=== PATIENT | female | born 1955 | race African-American/Black ===

== ENCOUNTER 2017-01-05 19:54 | Observation (INO) ==
[2017-01-05 21:30] LABS: Troponin I Only 0.197 NG/ML (0.00-0.045)
[2017-01-05] MEDS ORDERED: MAGNESIUM SULF RIDER 4 GM in PREMIX 1 EACH IV PRN (21:42)
[2017-01-05] MEDS ORDERED: ONDANSETRON 4 MG/2 ML VIAL IV PRN (21:42)
[2017-01-05] MEDS ORDERED: MAGNESIUM SULF RIDER 2 GM in PREMIX 1 EACH IV PRN (21:42)
[2017-01-05] MEDS ORDERED: ZALEPLON 5 MG CAPSULE PO PRN (21:42)
[2017-01-05] MEDS: MORPHINE 2 MG/1 ML SYRINGE IV PRN (23:15)
[2017-01-06] MEDS: SODIUM CHLORIDE 0.9% 1,000 ML IV SCH ×4 (00:10→14:55)
[2017-01-06 01:04] LABS: Troponin I Only 0.165 NG/ML (0.00-0.045)
[2017-01-06] MEDS: MORPHINE 2 MG/1 ML SYRINGE IV PRN ×3 (04:08→23:55)
[2017-01-06 05:39] LABS: Basophils % 0.3 % (0.0-0.8); Eosinophils # 0.2 10*3/uL (0.0-0.87); Eosinophils % 1.7 % (0.00-10.9); Hematocrit 37.8 VOL% (35.7-47.0); Hemoglobin 12.8 GM/DL (12.0-16.0); Immature Granulocytes % 0.2 %; Immature Granulocytes Absolute 0.02 #; Lymphocytes # 4.6 10*3/uL (1.4-4.0); Lymphocytes % 46.7 % (21.3-54.2); Mean Corpuscular HGB Conc 33.9 GM/DL (32-36); Mean Corpuscular Hemoglobin 31 PG (27-34); Mean Corpuscular Volume 91.7 FL (87-102); Mean Platelet Volume 9.4 FL (9.6-12.0); Monocytes # 0.7 10*3/uL (0.11-0.8); Monocytes % 7.6 % (1.7-12.7); Neutrophils # 4.3 10*3/uL (1.4-7.4); Neutrophils % 43.5 % (38.7-73.9); Platelet Count 230 T/CUMM (130-400); Red Blood Count 4.12 MC/CUMM (3.8-5.5); Red Cell Distribution Width 13.2 % (9.3-17.3); White Blood Count 9.8 T/CUMM (4-12)
[2017-01-06 06:16] LABS: Alanine Aminotransferase 25 U/L (13-56); Albumin 3.4 G/DL (3.4-5.0); Alkaline Phosphatase 111 U/L (45-117); Aspartate Amino Transferase 17 U/L (0-37); Blood Urea Nitrogen 10 MG/DL (7-18); Calcium 8.8 MG/DL (8.5-10.1); Cholesterol 109 MG/DL (50-200); Glucose 88 MG/DL (74-106); HDL Cholesterol 62 MG/DL (40-60); Magnesium 2.2 MG/DL (1.8-2.4); Osmolality,Calculated 274.5 MOS/KG (273-304); Potassium 4.4 MMOL/L (3.5-5.1); Risk Ratio 1.76; Sodium 139 MMOL/L (136-145); Triglycerides 86 MG/DL (2-150); VLDL CHOLESTEROL 17.2 MG/DL
[2017-01-06] MEDS ORDERED: MORPHINE 2 MG/1 ML SYRINGE IV ONE (08:25)
[2017-01-06] MEDS ORDERED: KETOROLAC 15 MG/1 ML VIAL IV ONE (08:26)
[2017-01-06] MEDS: traMADol 50 MG TABLET PO SCH ×2 (08:47→20:37)
[2017-01-06] MEDS ORDERED: ENOXAPARIN 40 MG/0.4 ML SYRINGE SUBCUT SCH (09:00)
[2017-01-06] MEDS: ASPIRIN EC 81 MG TABLET PO SCH (09:31)
[2017-01-06] MEDS: CARVEDILOL 6.25 MG TABLET PO SCH ×2 (09:31→20:37)
[2017-01-06] MEDS: PANTOPRAZOLE 40 MG TABLET PO SCH ×2 (09:31→20:37)
[2017-01-06 10:12] LABS: Troponin I Only 0.104 NG/ML (0.00-0.045)
[2017-01-06] MEDS: METHADONE 10 MG TABLET PO SCH ×2 (11:38→17:50)
[2017-01-06 19:52] LABS: Troponin I Only 0.073 NG/ML (0.00-0.045)
[2017-01-06] MEDS: POLYETHYLENE GLYCOL POWDER 17 GM PACK PO SCH (20:36)
[2017-01-06] MEDS: INSULIN REGULAR 100 UNIT/ML SUBCUT SCH (21:10)
[2017-01-06] MEDS ORDERED: GLUCAGON 1 MG VIAL IM PRN (21:36)
[2017-01-06] MEDS ORDERED: DEXTROSE 50% 25 GM/50 ML VIAL IV PRN (21:36)
[2017-01-07] MEDS: METHADONE 10 MG TABLET PO SCH ×4 (03:26→12:41)
[2017-01-07 05:15] LABS: Basophils % 0.3 % (0.0-0.8); Eosinophils # 0.2 10*3/uL (0.0-0.87); Hemoglobin 13.2 GM/DL (12.0-16.0); Immature Granulocytes % 0.1 %; Immature Granulocytes Absolute 0.01 #; Lymphocytes # 4.1 10*3/uL (1.4-4.0); Lymphocytes % 56.1 % (21.3-54.2); Mean Corpuscular HGB Conc 33.8 GM/DL (32-36); Mean Corpuscular Hemoglobin 31 PG (27-34); Mean Corpuscular Volume 91.3 FL (87-102); Mean Platelet Volume 9.7 FL (9.6-12.0); Monocytes # 0.5 10*3/uL (0.11-0.8); Monocytes % 6.7 % (1.7-12.7); Neutrophils # 2.5 10*3/uL (1.4-7.4); Neutrophils % 33.8 % (38.7-73.9); Platelet Count 217 T/CUMM (130-400); Red Blood Count 4.27 MC/CUMM (3.8-5.5); White Blood Count 7.3 T/CUMM (4-12)
[2017-01-07 05:57] LABS: Calcium 8.9 MG/DL (8.5-10.1); Magnesium 2.3 MG/DL (1.8-2.4); Osmolality,Calculated 283.5 MOS/KG (273-304); Potassium 4.5 MMOL/L (3.5-5.1)
[2017-01-07] MEDS: SODIUM CHLORIDE 0.9% 1,000 ML IV SCH (06:48)
[2017-01-07] MEDS ORDERED: ETOMIDATE 20 MG/10 ML VIAL IV ONE (07:15)
[2017-01-07] MEDS ORDERED: PROPOFOL 200 MG/20 ML VIAL IV ONE (07:15)
[2017-01-07] MEDS ORDERED: LIDOCAINE 100 MG/5 ML SYRINGE ONE (07:15)
[2017-01-07 07:37] LABS: Hypochromasia 1+; Lymphocytes 60 % (20-55); Segmented Neutrophils 35 % (50-85); Total Cells Counted 100
[2017-01-07 07:38] LABS: Microcytosis 1+; Platelet Estimate Normal
[2017-01-07] MEDS: INSULIN REGULAR 100 UNIT/ML SUBCUT SCH ×2 (07:55→12:51)
[2017-01-07] MEDS: CARVEDILOL 6.25 MG TABLET PO SCH (08:45)
[2017-01-07] MEDS: PANTOPRAZOLE 40 MG TABLET PO SCH (08:45)
[2017-01-07] MEDS: POLYETHYLENE GLYCOL POWDER 17 GM PACK PO SCH (08:46)
[2017-01-07] MEDS: traMADol 50 MG TABLET PO SCH (08:46)
[2017-01-07] MEDS: ASPIRIN EC 81 MG TABLET PO SCH (08:46)
[2017-01-07 11:50] VITALS: BP 142/81
[2017-01-07] MEDS ORDERED: METOCLOPRAMIDE 10 MG/2 ML VIAL IV SCH (12:00)
== END 2017-01-07 17:24 | disposition home or self-care (01) ==
LOC: EDUNIT# → EDBD → N.EDINP 19:54 → N.ED 19:54 → N.TELES 22:08
PROVIDERS: ADMIT Internal Medicine Cardiovascular Disease; ATTEND Internal Medicine Cardiovascular Disease

== ENCOUNTER 2017-01-08 20:28 | Inpatient (IN) ==
[2017-01-08] MEDS ORDERED: DEXTROSE 50% 25 GM/50 ML SYRINGE IV ONE (20:36)
[2017-01-08] MEDS ORDERED: DICYCLOMINE 20 MG/2 ML AMP IM ONE ×2 (21:11→21:13)
[2017-01-08 21:36] LABS: Basophils % 0.3 % (0.0-0.8); Eosinophils # 0.1 10*3/uL (0.0-0.87); Eosinophils % 1.8 % (0.00-10.9); Hematocrit 37.9 VOL% (35.7-47.0); Hemoglobin 13.1 GM/DL (12.0-16.0); Immature Granulocytes % 0.3 %; Immature Granulocytes Absolute 0.02 #; Lymphocytes # 2.9 10*3/uL (1.4-4.0); Lymphocytes % 38.3 % (21.3-54.2); Mean Corpuscular HGB Conc 34.6 GM/DL (32-36); Mean Corpuscular Hemoglobin 31 PG (27-34); Mean Corpuscular Volume 90.9 FL (87-102); Mean Platelet Volume 9.4 FL (9.6-12.0); Monocytes # 0.6 10*3/uL (0.11-0.8); Monocytes % 8.1 % (1.7-12.7); Neutrophils # 3.9 10*3/uL (1.4-7.4); Neutrophils % 51.2 % (38.7-73.9); Platelet Count 206 T/CUMM (130-400); Red Blood Count 4.17 MC/CUMM (3.8-5.5); Red Cell Distribution Width 12.7 % (9.3-17.3); White Blood Count 7.7 T/CUMM (4-12)
[2017-01-08 21:46] LABS: Osmolality,Calculated 278.7 MOS/KG (273-304)
[2017-01-08] MEDS ORDERED: ONDANSETRON 4 MG/2 ML VIAL IV PRN (23:53)
[2017-01-08] MEDS ORDERED: DEXTROSE 50% 25 GM/50 ML VIAL IV PRN (23:53)
[2017-01-08] MEDS ORDERED: GLUCAGON 1 MG VIAL IM PRN (23:53)
[2017-01-09] MEDS: INSULIN LISPRO 100 UNIT/ML SUBCUT SCH ×4 (00:23→17:11)
[2017-01-09] MEDS: SODIUM CHLORIDE 0.9% 1,000 ML IV SCH ×4 (00:30→23:14)
[2017-01-09] MEDS: ENOXAPARIN 40 MG/0.4 ML SYRINGE SUBCUT SCH ×2 (00:31→23:14)
[2017-01-09] MEDS: MORPHINE 2 MG/1 ML SYRINGE IV PRN ×2 (00:33→08:50)
[2017-01-09] MEDS: PANTOPRAZOLE 40 MG VIAL IV SCH (08:46)
[2017-01-09] MEDS ORDERED: INSULIN ASPART PROTAMINE/ASPART 70/30 100 UNIT/ML SUBCUT SCH (16:30)
[2017-01-09] MEDS: MONTELUKAST 10 MG TABLET PO SCH (16:41)
[2017-01-09] MEDS: METHADONE 10 MG TABLET PO SCH (16:42)
[2017-01-09] MEDS: ATORVASTATIN 20 MG TABLET PO SCH (16:42)
[2017-01-09] MEDS: METOCLOPRAMIDE 10 MG/2 ML VIAL IV SCH (17:17)
[2017-01-09] MEDS: METHYLNALTREXONE 12 MG/0.6 ML VIAL SUBCUT SCH (17:46)
[2017-01-09] MEDS: ALBUTEROL/IPRATROPIUM 3 ML NEB RESP TX SCH (19:13)
[2017-01-09] MEDS: PREGABALIN 50 MG CAPSULE PO SCH (21:21)
[2017-01-09] MEDS: PANTOPRAZOLE 40 MG TABLET PO SCH (21:22)
[2017-01-09] MEDS: CARVEDILOL 6.25 MG TABLET PO SCH (21:22)
[2017-01-09] MEDS: LACTULOSE 20 GM/30 ML UDCUP PO SCH (23:14)
[2017-01-10] MEDS: INSULIN LISPRO 100 UNIT/ML SUBCUT SCH ×4 (00:24→17:17)
[2017-01-10] MEDS: METOCLOPRAMIDE 10 MG/2 ML VIAL IV SCH ×3 (00:25→13:08)
[2017-01-10] MEDS: LACTULOSE 20 GM/30 ML UDCUP PO SCH ×4 (04:37→13:08)
[2017-01-10] MEDS: SODIUM CHLORIDE 0.9% 1,000 ML IV SCH ×2 (06:26→15:25)
[2017-01-10] MEDS ORDERED: INSULIN ASPART PROTAMINE/ASPART 70/30 100 UNIT/ML SUBCUT SCH ×3 (07:30→15:30)
[2017-01-10] MEDS ORDERED: LINACLOTIDE 145 MCG CAPSULE PO SCH (07:30)
[2017-01-10] MEDS: ALBUTEROL/IPRATROPIUM 3 ML NEB RESP TX SCH ×4 (08:09→20:29)
[2017-01-10] MEDS: CHOLECALCIFEROL 1,000 UNIT TABLET PO SCH (10:21)
[2017-01-10] MEDS: METHADONE 10 MG TABLET PO SCH (10:22)
[2017-01-10] MEDS: MONTELUKAST 10 MG TABLET PO SCH (10:22)
[2017-01-10] MEDS: PREGABALIN 50 MG CAPSULE PO SCH ×3 (10:22→20:41)
[2017-01-10] MEDS: ATORVASTATIN 20 MG TABLET PO SCH (10:22)
[2017-01-10] MEDS: PANTOPRAZOLE 40 MG TABLET PO SCH ×2 (10:22→20:41)
[2017-01-10] MEDS: CARVEDILOL 6.25 MG TABLET PO SCH ×2 (10:22→20:41)
[2017-01-10] MEDS: METHYLNALTREXONE 12 MG/0.6 ML VIAL SUBCUT SCH (10:23)
[2017-01-10] MEDS: LIDOCAINE 5% PATCH TRANSDERM SCH (10:35)
[2017-01-10] MEDS: PANTOPRAZOLE 40 MG VIAL IV SCH (11:04)
[2017-01-10] MEDS: METOCLOPRAMIDE 10 MG/10 ML UDCUP PO SCH ×2 (17:17→20:42)
[2017-01-10] MEDS: POLYETHYLENE GLYCOL POWDER 17 GM PACK PO SCH (20:42)
[2017-01-11] MEDS: INSULIN LISPRO 100 UNIT/ML SUBCUT SCH ×2 (00:01→06:00)
[2017-01-11] MEDS: ENOXAPARIN 40 MG/0.4 ML SYRINGE SUBCUT SCH (00:02)
[2017-01-11] MEDS: ALBUTEROL/IPRATROPIUM 3 ML NEB RESP TX SCH (07:20)
[2017-01-11] MEDS: ATORVASTATIN 20 MG TABLET PO SCH (09:39)
[2017-01-11] MEDS: METOCLOPRAMIDE 10 MG/10 ML UDCUP PO SCH ×2 (09:39→12:54)
[2017-01-11] MEDS: CARVEDILOL 6.25 MG TABLET PO SCH (09:39)
[2017-01-11] MEDS: LIDOCAINE 5% PATCH TRANSDERM SCH (09:39)
[2017-01-11] MEDS: CHOLECALCIFEROL 1,000 UNIT TABLET PO SCH (09:39)
[2017-01-11] MEDS: POLYETHYLENE GLYCOL POWDER 17 GM PACK PO SCH (09:40)
[2017-01-11] MEDS: PANTOPRAZOLE 40 MG TABLET PO SCH (09:40)
[2017-01-11] MEDS: METHADONE 10 MG TABLET PO SCH (09:40)
[2017-01-11] MEDS: MONTELUKAST 10 MG TABLET PO SCH (09:40)
[2017-01-11] MEDS: PREGABALIN 50 MG CAPSULE PO SCH (09:40)
[2017-01-11] MEDS: METHYLNALTREXONE 12 MG/0.6 ML VIAL SUBCUT SCH (09:46)
[2017-01-11 12:41] VITALS: BP 159/80
== END 2017-01-11 12:17 | disposition home or self-care (01) | DRG 390 ==
LOC: EDBD → EDUNIT# → N.ED 20:28 → N.EDINP 22:58 → SUATTDRO 22:58 → N.3E 23:47
PROVIDERS: ADMIT Internal Medicine; ATTEND Internal Medicine

== ENCOUNTER 2020-03-19 15:13 | Inpatient (IN) ==
[2020-03-19] MEDS ORDERED: GLUCAGON 1 MG VIAL IM PRN (15:59)
[2020-03-19] MEDS ORDERED: DEXTROSE 50% 25 GM/50 ML VIAL IV PRN (15:59)
[2020-03-19] MEDS ORDERED: oxyCODONE/ACETAMINOPHEN 5-325 MG TABLET PO PRN (16:28)
[2020-03-19] MEDS: oxyCODONE/ACETAMINOPHEN 5-325 MG TABLET PO PRN ×2 (16:44→20:39)
[2020-03-19] MEDS ORDERED: LINACLOTIDE 145 MCG CAPSULE PO PRN (16:49)
[2020-03-19 16:57] LABS: Basophils % 0.5 % (0.0-0.8); Eosinophils # 0.2 10*3/uL (0.0-0.87); Eosinophils % 1.9 % (0.00-10.9); Hematocrit 41.4 VOL% (35.7-47.0); Hemoglobin 13.8 GM/DL (12.0-16.0); Immature Granulocytes % 0.2 %; Immature Granulocytes Absolute 0.02 #; Lymphocytes # 3.9 10*3/uL (1.4-4.0); Lymphocytes % 45.7 % (21.3-54.2); Mean Corpuscular HGB Conc 33.3 GM/DL (32-36); Mean Corpuscular Volume 87.3 FL (87-102); Mean Platelet Volume 9.7 FL (9.6-12.0); Monocytes % 7.8 % (1.7-12.7); Neutrophils % 43.9 % (38.7-73.9); Platelet Count 316 T/CUMM (130-400); Red Blood Count 4.74 MC/CUMM (3.8-5.5); White Blood Count 8.4 T/CUMM (4-12)
[2020-03-19] MEDS ORDERED: INFLUENZA VIRUS VACCINE 0.5 ML SYRINGE IM ONE (17:03)
[2020-03-19 17:14] LABS: PT Patient Result 10.8 SECS (9.8-11.9)
[2020-03-19 17:21] LABS: Alanine Aminotransferase 12 U/L (13-56); Albumin 3.8 G/DL (3.4-5.0); Alkaline Phosphatase 156 U/L (45-117); Aspartate Amino Transferase 14 U/L (0-37); Bilirubin,Total < 0.39 MG/DL (0.2-1.0); Blood Urea Nitrogen 7 MG/DL (7-18); Calcium 9.2 MG/DL (8.5-10.1); Carbon Dioxide 27 MMOL/L (21-32); Estimated Glom Filtration Rate 112 ML/MIN; Glucose 126 MG/DL (74-106); Osmolality,Calculated 278.4 MOS/KG (273-304); Potassium 4.3 MMOL/L (3.5-5.1); Sodium 140 MMOL/L (136-145); Total Protein 7.9 G/DL (6.4-8.3); Uric Acid 4.4 MG/DL (2.6-6.0)
[2020-03-19] MEDS ORDERED: INDOMETHACIN 50 MG CAPSULE PO SCH (18:00)
[2020-03-19 18:01] LABS: Sedimentation Rate-Westergren 26 MM/HR (0-30)
[2020-03-19] MEDS: GABAPENTIN 400 MG CAPSULE PO SCH (20:39)
[2020-03-19] MEDS: VANCOMYCIN INJ 1,000 MG in SODIUM CHLORIDE 0.9% 250 ML IV SCH (20:39)
[2020-03-19] MEDS: PANTOPRAZOLE 40 MG TABLET PO SCH (20:39)
[2020-03-19] MEDS: PREGABALIN 100 MG CAPSULE PO SCH (20:39)
[2020-03-20] MEDS: oxyCODONE/ACETAMINOPHEN 5-325 MG TABLET PO PRN ×5 (01:12→21:59)
[2020-03-20] MEDS: VANCOMYCIN INJ 1,000 MG in SODIUM CHLORIDE 0.9% 250 ML IV SCH ×2 (07:50→21:48)
[2020-03-20] MEDS: PANTOPRAZOLE 40 MG TABLET PO SCH ×2 (09:54→21:48)
[2020-03-20] MEDS: lisinopriL 10 MG TABLET PO SCH (09:54)
[2020-03-20] MEDS: PREGABALIN 100 MG CAPSULE PO SCH ×3 (09:54→21:48)
[2020-03-20] MEDS: ESTRADIOL 1 MG TABLET PO SCH (09:54)
[2020-03-20] MEDS: ASPIRIN EC 81 MG TABLET PO SCH (09:55)
[2020-03-20] MEDS ORDERED: DEXTROSE 50% 25 GM/50 ML VIAL IV PRN (10:35)
[2020-03-20] MEDS ORDERED: GLUCAGON 1 MG VIAL IM PRN (10:35)
[2020-03-20] MEDS: NICOTINE 21 MG/24 HR PATCH TRANSDERM SCH (11:55)
[2020-03-20] MEDS: TENOFOVIR DISOPROXIL PO SCH (11:56)
[2020-03-20] MEDS: COBICISTAT PO SCH (11:56)
[2020-03-20] MEDS: EMPAGLIFLOZIN PO SCH (11:56)
[2020-03-20] MEDS: EMTRICITABINE PO SCH (11:56)
[2020-03-20] MEDS: LINAGLIPTIN PO SCH (11:56)
[2020-03-20] MEDS: METFORMIN PO SCH (11:56)
[2020-03-20] MEDS: ELVITEGRAVIR PO SCH (11:56)
[2020-03-20] MEDS: GABAPENTIN 400 MG CAPSULE PO SCH ×3 (11:57→21:47)
[2020-03-20] MEDS: diphenhydrAMINE CAP 25 MG CAPSULE PO PRN (13:47)
[2020-03-21] MEDS: oxyCODONE/ACETAMINOPHEN 5-325 MG TABLET PO PRN ×4 (06:04→20:52)
[2020-03-21] MEDS ORDERED: fentaNYL 100 MCG/2 ML VIAL IV ONE (08:08)
[2020-03-21] MEDS ORDERED: DIAZEPAM 5 MG TABLET PO ONE (08:08)
[2020-03-21] MEDS ORDERED: MIDAZOLAM 2 MG/2 ML VIAL IV ONE (08:08)
[2020-03-21] MEDS ORDERED: BISACODYL 5 MG TABLET PO ONE (09:30)
[2020-03-21] MEDS: VANCOMYCIN INJ 1,000 MG in SODIUM CHLORIDE 0.9% 250 ML IV SCH ×2 (11:43→20:55)
[2020-03-21] MEDS: lisinopriL 10 MG TABLET PO SCH (11:44)
[2020-03-21] MEDS ORDERED: HEPARIN/NACL 0.9% 2 UNITS/ML 2,000 ML IV ONE (13:13)
[2020-03-21] MEDS ORDERED: HEPARIN 5,000 UNIT/1 ML VIAL ONE (13:25)
[2020-03-21 14:51] LABS: Bacteria,Urine Many /HPF (Few); Bilirubin,Urine Negative (Negative); Blood, Urine Negative (Negative); Glucose,Urine (UA) >=500 mg/dL (Negative); Ketones,Urine Negative (Negative); Nitrite,Urine Negative (Negative); Protein,Urine Negative; RBC,Urine 5 /HPF (0-4); Squamous Epithelial Cell,Urine Occasional /HPF (0-10); Urine Appearance CLOUDY (Clear); Urine Color Yellow (Yellow); Urine Specific Gravity 1.035 (1.001-1.035); Urine Urobilinogen < 2.0 EU/DL (0.2-1.0)
[2020-03-21] MEDS ORDERED: HEPARIN 5,000 UNIT/1 ML VIAL IV PRN (14:51)
[2020-03-21] MEDS ORDERED: CLOPIDOGREL 75 MG TABLET PO ONE (16:07)
[2020-03-21] MEDS ORDERED: DEXTROSE 50% 25 GM/50 ML VIAL IV PRN (16:45)
[2020-03-21] MEDS ORDERED: GLUCAGON 1 MG VIAL IM PRN (16:45)
[2020-03-21] MEDS: MAGNESIUM HYDROXIDE SUSP 30 ML UDCUP PO PRN (18:14)
[2020-03-21] MEDS: METFORMIN PO SCH (19:40)
[2020-03-21] MEDS: GABAPENTIN 400 MG CAPSULE PO SCH ×3 (19:40→20:52)
[2020-03-21] MEDS: EMTRICITABINE PO SCH (19:40)
[2020-03-21] MEDS: EMPAGLIFLOZIN PO SCH (19:40)
[2020-03-21] MEDS: ASPIRIN EC 81 MG TABLET PO SCH (19:40)
[2020-03-21] MEDS: ELVITEGRAVIR PO SCH (19:40)
[2020-03-21] MEDS: LINAGLIPTIN PO SCH (19:40)
[2020-03-21] MEDS: COBICISTAT PO SCH (19:40)
[2020-03-21] MEDS: ESTRADIOL 1 MG TABLET PO SCH (19:40)
[2020-03-21] MEDS: TENOFOVIR DISOPROXIL PO SCH (19:40)
[2020-03-21] MEDS: PANTOPRAZOLE 40 MG TABLET PO SCH ×2 (19:41→20:52)
[2020-03-21] MEDS: MAGNESIUM CHLORIDE 64 MG TABLET PO SCH (19:41)
[2020-03-21] MEDS: NICOTINE 21 MG/24 HR PATCH TRANSDERM SCH (19:41)
[2020-03-21] MEDS: SODIUM CHLORIDE 0.45% 1,000 ML IV SCH (19:52)
[2020-03-22] MEDS: oxyCODONE/ACETAMINOPHEN 5-325 MG TABLET PO PRN ×4 (02:41→20:09)
[2020-03-22 06:52] LABS: Calcium 8.4 MG/DL (8.5-10.1); Osmolality,Calculated 281.4 MOS/KG (273-304); Potassium 4.1 MMOL/L (3.5-5.1)
[2020-03-22] MEDS ORDERED: fentaNYL 100 MCG/2 ML VIAL ONE (08:26)
[2020-03-22] MEDS ORDERED: MIDAZOLAM 2 MG/2 ML VIAL ONE (08:27)
[2020-03-22] MEDS ORDERED: propofoL 200 MG/20 ML VIAL IV ONE (08:31)
[2020-03-22] MEDS ORDERED: LIDOCAINE 2% 5 ML VIAL ONE (08:31)
[2020-03-22] MEDS ORDERED: KETAMINE 500 MG/10 ML VIAL ONE (09:05)
[2020-03-22] MEDS ORDERED: BUPIVACAINE 0.5% 50 ML VIAL ONE (09:20)
[2020-03-22] MEDS: diphenhydrAMINE CAP 25 MG CAPSULE PO PRN (11:01)
[2020-03-22] MEDS: VANCOMYCIN INJ 1,000 MG in SODIUM CHLORIDE 0.9% 250 ML IV SCH (11:03)
[2020-03-22] MEDS: EMPAGLIFLOZIN PO SCH (11:48)
[2020-03-22] MEDS: EMTRICITABINE PO SCH (11:48)
[2020-03-22] MEDS: GABAPENTIN 400 MG CAPSULE PO SCH ×3 (11:48→20:09)
[2020-03-22] MEDS: ASPIRIN EC 81 MG TABLET PO SCH (11:48)
[2020-03-22] MEDS: METFORMIN PO SCH (11:48)
[2020-03-22] MEDS: LINAGLIPTIN PO SCH (11:48)
[2020-03-22] MEDS: TENOFOVIR DISOPROXIL PO SCH (11:48)
[2020-03-22] MEDS: ESTRADIOL 1 MG TABLET PO SCH (11:48)
[2020-03-22] MEDS: ELVITEGRAVIR PO SCH (11:48)
[2020-03-22] MEDS: COBICISTAT PO SCH (11:48)
[2020-03-22] MEDS: lisinopriL 10 MG TABLET PO SCH (11:49)
[2020-03-22] MEDS: PANTOPRAZOLE 40 MG TABLET PO SCH ×2 (11:49→20:09)
[2020-03-22] MEDS: CLOPIDOGREL 75 MG TABLET PO SCH (11:49)
[2020-03-22] MEDS: NICOTINE 21 MG/24 HR PATCH TRANSDERM SCH (11:49)
[2020-03-22] MEDS ORDERED: GLUCAGON 1 MG VIAL IM PRN (15:09)
[2020-03-22] MEDS ORDERED: DEXTROSE 50% 25 GM/50 ML VIAL IV PRN (15:09)
[2020-03-23] MEDS: oxyCODONE/ACETAMINOPHEN 5-325 MG TABLET PO PRN ×5 (00:38→19:38)
[2020-03-23] MEDS: diphenhydrAMINE CAP 25 MG CAPSULE PO PRN (03:14)
[2020-03-23] MEDS: VANCOMYCIN INJ 1,000 MG in SODIUM CHLORIDE 0.9% 250 ML IV SCH ×2 (03:14→14:10)
[2020-03-23] MEDS: ASPIRIN EC 81 MG TABLET PO SCH (09:09)
[2020-03-23] MEDS: NICOTINE 21 MG/24 HR PATCH TRANSDERM SCH (09:09)
[2020-03-23] MEDS: lisinopriL 10 MG TABLET PO SCH (09:09)
[2020-03-23] MEDS: GABAPENTIN 400 MG CAPSULE PO SCH ×3 (09:09→20:53)
[2020-03-23] MEDS: MAGNESIUM CHLORIDE 64 MG TABLET PO SCH (09:09)
[2020-03-23] MEDS: ESTRADIOL 1 MG TABLET PO SCH (09:09)
[2020-03-23] MEDS: PANTOPRAZOLE 40 MG TABLET PO SCH ×2 (09:09→20:53)
[2020-03-23] MEDS ORDERED: KETOROLAC 30 MG/1 ML VIAL IV ONE (09:30)
[2020-03-23] MEDS: EMPAGLIFLOZIN PO SCH (11:18)
[2020-03-23] MEDS: LINAGLIPTIN PO SCH (11:18)
[2020-03-23] MEDS: METFORMIN PO SCH (11:18)
[2020-03-23] MEDS: COBICISTAT PO SCH (11:22)
[2020-03-23] MEDS: ELVITEGRAVIR PO SCH (11:22)
[2020-03-23] MEDS: TENOFOVIR DISOPROXIL PO SCH (11:22)
[2020-03-23] MEDS: EMTRICITABINE PO SCH (11:22)
[2020-03-23] MEDS: CLOPIDOGREL 75 MG TABLET PO SCH (11:26)
[2020-03-23] MEDS: KETOROLAC 10 MG TABLET PO SCH ×2 (14:10→17:51)
[2020-03-23] MEDS ORDERED: cloNIDine 0.2 MG/24 HR PATCH TRANSDERM ONE (20:07)
[2020-03-23] MEDS: cilostazoL 100 MG TABLET PO SCH (20:52)
[2020-03-23] MEDS: INSULIN REGULAR 100 UNIT/ML SUBCUT SCH (20:53)
[2020-03-24] MEDS: oxyCODONE/ACETAMINOPHEN 5-325 MG TABLET PO PRN ×6 (00:18→23:13)
[2020-03-24] MEDS: KETOROLAC 10 MG TABLET PO SCH ×5 (00:22→23:13)
[2020-03-24] MEDS: VANCOMYCIN INJ 1,000 MG in SODIUM CHLORIDE 0.9% 250 ML IV SCH ×2 (03:41→15:16)
[2020-03-24] MEDS: ESTRADIOL 1 MG TABLET PO SCH (10:13)
[2020-03-24] MEDS: PANTOPRAZOLE 40 MG TABLET PO SCH ×2 (10:14→21:20)
[2020-03-24] MEDS: CLOPIDOGREL 75 MG TABLET PO SCH (10:14)
[2020-03-24] MEDS: lisinopriL 10 MG TABLET PO SCH (10:14)
[2020-03-24] MEDS: GABAPENTIN 400 MG CAPSULE PO SCH ×3 (10:14→21:20)
[2020-03-24] MEDS: INSULIN REGULAR 100 UNIT/ML SUBCUT SCH ×4 (10:16→21:20)
[2020-03-24] MEDS: ASPIRIN EC 81 MG TABLET PO SCH (10:17)
[2020-03-24] MEDS: NICOTINE 21 MG/24 HR PATCH TRANSDERM SCH (10:17)
[2020-03-24] MEDS: cilostazoL 100 MG TABLET PO SCH ×2 (10:17→21:20)
[2020-03-24] MEDS: COBICISTAT PO SCH (10:23)
[2020-03-24] MEDS: EMTRICITABINE PO SCH (10:23)
[2020-03-24] MEDS: TENOFOVIR DISOPROXIL PO SCH (10:23)
[2020-03-24] MEDS: ELVITEGRAVIR PO SCH (10:23)
[2020-03-24] MEDS: LINAGLIPTIN PO SCH (10:24)
[2020-03-24] MEDS: EMPAGLIFLOZIN PO SCH (10:24)
[2020-03-24] MEDS: METFORMIN PO SCH (10:24)
[2020-03-24] MEDS: MAGNESIUM HYDROXIDE SUSP 30 ML UDCUP PO PRN (21:30)
[2020-03-25] MEDS: oxyCODONE/ACETAMINOPHEN 5-325 MG TABLET PO PRN ×4 (03:52→20:15)
[2020-03-25] MEDS: VANCOMYCIN INJ 1,000 MG in SODIUM CHLORIDE 0.9% 250 ML IV SCH ×2 (03:57→15:55)
[2020-03-25] MEDS: KETOROLAC 10 MG TABLET PO SCH ×4 (05:02→23:18)
[2020-03-25] MEDS: INSULIN REGULAR 100 UNIT/ML SUBCUT SCH ×4 (07:14→21:05)
[2020-03-25] MEDS: SODIUM CHLORIDE 0.45% 1,000 ML IV SCH (07:53)
[2020-03-25] MEDS: CLOPIDOGREL 75 MG TABLET PO SCH (08:07)
[2020-03-25] MEDS: lisinopriL 10 MG TABLET PO SCH (08:07)
[2020-03-25] MEDS: ESTRADIOL 1 MG TABLET PO SCH (08:07)
[2020-03-25] MEDS: GABAPENTIN 400 MG CAPSULE PO SCH ×3 (08:07→20:10)
[2020-03-25] MEDS: ASPIRIN EC 81 MG TABLET PO SCH (08:07)
[2020-03-25] MEDS: PANTOPRAZOLE 40 MG TABLET PO SCH ×2 (08:08→20:10)
[2020-03-25] MEDS: cilostazoL 100 MG TABLET PO SCH ×2 (08:08→20:10)
[2020-03-25] MEDS: MAGNESIUM CHLORIDE 64 MG TABLET PO SCH (08:08)
[2020-03-25] MEDS: NICOTINE 21 MG/24 HR PATCH TRANSDERM SCH (08:10)
[2020-03-25] MEDS: LINAGLIPTIN PO SCH (08:16)
[2020-03-25] MEDS: ELVITEGRAVIR PO SCH (08:16)
[2020-03-25] MEDS: EMTRICITABINE PO SCH (08:16)
[2020-03-25] MEDS: METFORMIN PO SCH (08:16)
[2020-03-25] MEDS: TENOFOVIR DISOPROXIL PO SCH (08:16)
[2020-03-25] MEDS: COBICISTAT PO SCH (08:16)
[2020-03-25] MEDS: EMPAGLIFLOZIN PO SCH (08:16)
[2020-03-25] MEDS ORDERED: ONDANSETRON 4 MG/2 ML VIAL ONE (11:03)
[2020-03-25] MEDS: MAGNESIUM HYDROXIDE SUSP 30 ML UDCUP PO PRN (20:10)
[2020-03-26] MEDS ORDERED: ONDANSETRON 4 MG/2 ML VIAL IV ONE (01:10)
[2020-03-26] MEDS: oxyCODONE/ACETAMINOPHEN 5-325 MG TABLET PO PRN ×4 (03:52→19:27)
[2020-03-26] MEDS: VANCOMYCIN INJ 1,000 MG in SODIUM CHLORIDE 0.9% 250 ML IV SCH ×2 (03:53→16:06)
[2020-03-26] MEDS: KETOROLAC 10 MG TABLET PO SCH ×3 (06:04→17:52)
[2020-03-26] MEDS: GABAPENTIN 400 MG CAPSULE PO SCH ×3 (09:34→21:45)
[2020-03-26] MEDS: ESTRADIOL 1 MG TABLET PO SCH (09:34)
[2020-03-26] MEDS: ASPIRIN EC 81 MG TABLET PO SCH (09:34)
[2020-03-26] MEDS: PANTOPRAZOLE 40 MG TABLET PO SCH ×2 (09:34→21:45)
[2020-03-26] MEDS: cilostazoL 100 MG TABLET PO SCH ×2 (09:34→21:45)
[2020-03-26] MEDS: CLOPIDOGREL 75 MG TABLET PO SCH (09:34)
[2020-03-26] MEDS: lisinopriL 10 MG TABLET PO SCH (09:34)
[2020-03-26] MEDS: INSULIN REGULAR 100 UNIT/ML SUBCUT SCH ×4 (09:35→21:46)
[2020-03-26] MEDS: NICOTINE 21 MG/24 HR PATCH TRANSDERM SCH (09:35)
[2020-03-26] MEDS: METFORMIN PO SCH (09:36)
[2020-03-26] MEDS: EMPAGLIFLOZIN PO SCH (09:36)
[2020-03-26] MEDS: LINAGLIPTIN PO SCH (09:36)
[2020-03-26] MEDS: TENOFOVIR DISOPROXIL PO SCH (09:36)
[2020-03-26] MEDS: ELVITEGRAVIR PO SCH (09:36)
[2020-03-26] MEDS: COBICISTAT PO SCH (09:36)
[2020-03-26] MEDS: EMTRICITABINE PO SCH (09:36)
[2020-03-26] MEDS ORDERED: METOCLOPRAMIDE 10 MG/2 ML VIAL IV ONE (11:40)
[2020-03-26] MEDS: METOCLOPRAMIDE 10 MG TABLET PO SCH ×3 (11:50→21:45)
[2020-03-26] MEDS: ONDANSETRON 4 MG/2 ML VIAL IV PRN ×2 (17:56→21:49)
[2020-03-26] MEDS: diphenhydrAMINE CAP 25 MG CAPSULE PO PRN (22:36)
[2020-03-27] MEDS: oxyCODONE/ACETAMINOPHEN 5-325 MG TABLET PO PRN ×4 (00:35→23:50)
[2020-03-27] MEDS: VANCOMYCIN INJ 1,000 MG in SODIUM CHLORIDE 0.9% 250 ML IV SCH ×2 (04:29→15:11)
[2020-03-27 06:11] LABS: Calcium 8.8 MG/DL (8.5-10.1); Osmolality,Calculated 276.7 MOS/KG (273-304); Potassium 4.5 MMOL/L (3.5-5.1)
[2020-03-27] MEDS: KETOROLAC 10 MG TABLET PO SCH ×4 (06:49→17:26)
[2020-03-27] MEDS: INSULIN REGULAR 100 UNIT/ML SUBCUT SCH ×4 (07:44→21:24)
[2020-03-27] MEDS ORDERED: LIDOCAINE 2% 5 ML VIAL ONE (08:13)
[2020-03-27] MEDS ORDERED: propofoL 200 MG/20 ML VIAL IV ONE ×2 (08:13→08:26)
[2020-03-27] MEDS ORDERED: fentaNYL 100 MCG/2 ML VIAL ONE (08:14)
[2020-03-27] MEDS ORDERED: MIDAZOLAM 2 MG/2 ML VIAL ONE (08:14)
[2020-03-27] MEDS ORDERED: KETAMINE 500 MG/10 ML VIAL ONE (08:14)
[2020-03-27] MEDS ORDERED: ONDANSETRON 4 MG/2 ML VIAL ONE (08:14)
[2020-03-27] MEDS: lisinopriL 10 MG TABLET PO SCH (08:14)
[2020-03-27] MEDS ORDERED: BUPIVACAINE 0.5% 50 ML VIAL ONE (08:41)
[2020-03-27] MEDS ORDERED: PHENYLEPHRINE 1 MG/10 ML SYRINGE IV ONE (09:42)
[2020-03-27] MEDS: METOCLOPRAMIDE 10 MG TABLET PO SCH ×5 (10:00→21:25)
[2020-03-27] MEDS: GABAPENTIN 400 MG CAPSULE PO SCH ×3 (14:52→21:24)
[2020-03-27] MEDS: cilostazoL 100 MG TABLET PO SCH ×2 (14:53→21:24)
[2020-03-27] MEDS: PANTOPRAZOLE 40 MG TABLET PO SCH ×2 (14:54→21:25)
[2020-03-27] MEDS: NICOTINE 21 MG/24 HR PATCH TRANSDERM SCH (15:09)
[2020-03-27] MEDS: ASPIRIN EC 81 MG TABLET PO SCH (15:10)
[2020-03-27] MEDS: ESTRADIOL 1 MG TABLET PO SCH (15:10)
[2020-03-27] MEDS: MAGNESIUM CHLORIDE 64 MG TABLET PO SCH (15:10)
[2020-03-27] MEDS: CLOPIDOGREL 75 MG TABLET PO SCH (15:10)
[2020-03-27] MEDS: METFORMIN PO SCH (15:26)
[2020-03-27] MEDS: EMTRICITABINE PO SCH (15:26)
[2020-03-27] MEDS: TENOFOVIR DISOPROXIL PO SCH (15:26)
[2020-03-27] MEDS: ELVITEGRAVIR PO SCH (15:26)
[2020-03-27] MEDS: LINAGLIPTIN PO SCH (15:26)
[2020-03-27] MEDS: EMPAGLIFLOZIN PO SCH (15:26)
[2020-03-27] MEDS: COBICISTAT PO SCH (15:26)
[2020-03-28] MEDS: KETOROLAC 10 MG TABLET PO SCH ×2 (00:50→07:01)
[2020-03-28] MEDS: VANCOMYCIN INJ 1,000 MG in SODIUM CHLORIDE 0.9% 250 ML IV SCH ×2 (02:25→15:42)
[2020-03-28] MEDS: oxyCODONE/ACETAMINOPHEN 5-325 MG TABLET PO PRN ×4 (04:37→19:37)
[2020-03-28] MEDS: INSULIN REGULAR 100 UNIT/ML SUBCUT SCH ×4 (08:00→22:37)
[2020-03-28] MEDS: ASPIRIN EC 81 MG TABLET PO SCH (08:02)
[2020-03-28] MEDS: cilostazoL 100 MG TABLET PO SCH ×2 (08:02→20:52)
[2020-03-28] MEDS: PANTOPRAZOLE 40 MG TABLET PO SCH ×2 (08:02→20:52)
[2020-03-28] MEDS: CLOPIDOGREL 75 MG TABLET PO SCH (08:02)
[2020-03-28] MEDS: METOCLOPRAMIDE 10 MG TABLET PO SCH ×4 (08:02→20:52)
[2020-03-28] MEDS: lisinopriL 10 MG TABLET PO SCH (08:02)
[2020-03-28] MEDS: GABAPENTIN 400 MG CAPSULE PO SCH ×3 (08:02→20:52)
[2020-03-28] MEDS: ESTRADIOL 1 MG TABLET PO SCH (08:02)
[2020-03-28] MEDS: NICOTINE 21 MG/24 HR PATCH TRANSDERM SCH (08:03)
[2020-03-28] MEDS: ELVITEGRAVIR PO SCH (08:04)
[2020-03-28] MEDS: LINAGLIPTIN PO SCH (08:04)
[2020-03-28] MEDS: METFORMIN PO SCH (08:04)
[2020-03-28] MEDS: EMTRICITABINE PO SCH (08:04)
[2020-03-28] MEDS: TENOFOVIR DISOPROXIL PO SCH (08:04)
[2020-03-28] MEDS: EMPAGLIFLOZIN PO SCH (08:04)
[2020-03-28] MEDS: COBICISTAT PO SCH (08:04)
[2020-03-28] MEDS: MAGNESIUM HYDROXIDE SUSP 30 ML UDCUP PO PRN (08:44)
[2020-03-28] MEDS: diphenhydrAMINE CAP 25 MG CAPSULE PO PRN (08:44)
[2020-03-29] MEDS: oxyCODONE/ACETAMINOPHEN 5-325 MG TABLET PO PRN ×4 (00:51→12:46)
[2020-03-29] MEDS: VANCOMYCIN INJ 1,000 MG in SODIUM CHLORIDE 0.9% 250 ML IV SCH (04:50)
[2020-03-29] MEDS: INSULIN REGULAR 100 UNIT/ML SUBCUT SCH ×2 (08:25→12:45)
[2020-03-29] MEDS: GABAPENTIN 400 MG CAPSULE PO SCH (10:16)
[2020-03-29] MEDS: cilostazoL 100 MG TABLET PO SCH (10:16)
[2020-03-29] MEDS: lisinopriL 10 MG TABLET PO SCH (10:16)
[2020-03-29] MEDS: METOCLOPRAMIDE 10 MG TABLET PO SCH ×2 (10:16→12:46)
[2020-03-29] MEDS: ESTRADIOL 1 MG TABLET PO SCH (10:16)
[2020-03-29] MEDS: MAGNESIUM CHLORIDE 64 MG TABLET PO SCH (10:16)
[2020-03-29] MEDS: PANTOPRAZOLE 40 MG TABLET PO SCH (10:17)
[2020-03-29] MEDS: TENOFOVIR DISOPROXIL PO SCH (10:17)
[2020-03-29] MEDS: CLOPIDOGREL 75 MG TABLET PO SCH (10:17)
[2020-03-29] MEDS: EMTRICITABINE PO SCH (10:17)
[2020-03-29] MEDS: COBICISTAT PO SCH (10:17)
[2020-03-29] MEDS: ASPIRIN EC 81 MG TABLET PO SCH (10:17)
[2020-03-29] MEDS: ELVITEGRAVIR PO SCH (10:17)
[2020-03-29] MEDS: NICOTINE 21 MG/24 HR PATCH TRANSDERM SCH (10:18)
[2020-03-29] MEDS: EMPAGLIFLOZIN PO SCH (10:18)
[2020-03-29] MEDS: METFORMIN PO SCH (10:18)
[2020-03-29] MEDS: LINAGLIPTIN PO SCH (10:18)
[2020-03-29 12:28] VITALS: BP 187/76
== END 2020-03-29 14:20 | disposition home health service (06) | DRG 240 ==
LOC: N.3E 15:42
PROVIDERS: ADMIT Surgery; ATTEND Surgery

== ENCOUNTER 2020-04-25 13:42 | Inpatient (IN) ==
[2020-04-25] MEDS ORDERED: DEXTROSE 50% 25 GM/50 ML VIAL IV PRN (14:31)
[2020-04-25] MEDS ORDERED: GLUCAGON 1 MG VIAL IM PRN (14:31)
[2020-04-25] MEDS ORDERED: PIPERACILLIN/TAZOBACTAM 3,375 MG in SODIUM CHLORIDE 0.9% 100 ML IV SCH (15:00)
[2020-04-25 15:32] LABS: Basophils % 0.2 % (0.0-0.8); Eosinophils # 0.1 10*3/uL (0.0-0.87); Eosinophils % 0.6 % (0.00-10.9); Hematocrit 39.9 VOL% (35.7-47.0); Hemoglobin 12.7 GM/DL (12.0-16.0); Immature Granulocytes % 0.4 %; Immature Granulocytes Absolute 0.04 #; Lymphocytes # 2.5 10*3/uL (1.4-4.0); Lymphocytes % 25.8 % (21.3-54.2); Mean Corpuscular HGB Conc 31.8 GM/DL (32-36); Mean Corpuscular Volume 87.9 FL (87-102); Mean Platelet Volume 9.1 FL (9.6-12.0); Monocytes % 6.4 % (1.7-12.7); Neutrophils % 66.6 % (38.7-73.9); Platelet Count 405 T/CUMM (130-400); Red Blood Count 4.54 MC/CUMM (3.8-5.5); Red Cell Distribution Width 14.1 % (9.3-17.3); White Blood Count 9.7 T/CUMM (4-12)
[2020-04-25 15:46] LABS: INR 1.1; PT Patient Result 11.3 SECS (9.8-11.9)
[2020-04-25 15:51] LABS: Alanine Aminotransferase 10 U/L (13-56); Albumin 3.3 G/DL (3.4-5.0); Alkaline Phosphatase 146 U/L (45-117); Aspartate Amino Transferase 12 U/L (0-37); Bilirubin,Total < 0.39 MG/DL (0.2-1.0); Blood Urea Nitrogen 9 MG/DL (7-18); Calcium 9.7 MG/DL (8.5-10.1); Carbon Dioxide 24 MMOL/L (21-32); Estimated Glom Filtration Rate 116 ML/MIN; Glucose 145 MG/DL (74-106); Osmolality,Calculated 282.3 MOS/KG (273-304); Potassium 3.7 MMOL/L (3.5-5.1); Sodium 141 MMOL/L (136-145); Total Protein 8.1 G/DL (6.4-8.3)
[2020-04-25] MEDS: HYDROmorphone 2 MG/1 ML VIAL IV PRN ×2 (16:46→20:30)
[2020-04-25] MEDS: INSULIN REGULAR 100 UNIT/ML SUBCUT SCH ×2 (17:14→20:31)
[2020-04-25] MEDS: VANCOMYCIN INJ 1,000 MG in SODIUM CHLORIDE 0.9% 250 ML IV SCH (17:39)
[2020-04-25] MEDS: LACTATED RINGERS 1,000 ML IV SCH (17:43)
[2020-04-25] MEDS: COMBIVIR PO SCH (20:30)
[2020-04-25] MEDS: CYCLOBENZAPRINE 10 MG TABLET PO SCH (20:31)
[2020-04-25] MEDS ORDERED: diphenhydrAMINE CAP 25 MG CAPSULE PO ONE (21:35)
[2020-04-26] MEDS: HYDROmorphone 2 MG/1 ML VIAL IV PRN ×5 (00:36→20:23)
[2020-04-26] MEDS: VANCOMYCIN INJ 1,000 MG in SODIUM CHLORIDE 0.9% 250 ML IV SCH ×2 (05:23→16:22)
[2020-04-26] MEDS ORDERED: DIAZEPAM 5 MG TABLET PO ONE (07:07)
[2020-04-26] MEDS ORDERED: MIDAZOLAM 2 MG/2 ML VIAL IV ONE (07:07)
[2020-04-26] MEDS ORDERED: fentaNYL 100 MCG/2 ML VIAL IV ONE (07:07)
[2020-04-26] MEDS ORDERED: SODIUM CHLORIDE 0.45% 1,000 ML IV SCH (07:30)
[2020-04-26] MEDS ORDERED: HEPARIN/NACL 0.9% 2 UNITS/ML 2,000 ML IV ONE (07:33)
[2020-04-26] MEDS ORDERED: ALTEPLASE 2 MG VIAL ONE (07:36)
[2020-04-26] MEDS ORDERED: HEPARIN 5,000 UNIT/1 ML VIAL ONE (07:37)
[2020-04-26] MEDS: INSULIN REGULAR 100 UNIT/ML SUBCUT SCH ×4 (07:59→21:35)
[2020-04-26] MEDS: COMBIVIR PO SCH ×2 (11:54→21:35)
[2020-04-26] MEDS: PREGABALIN 100 MG CAPSULE PO SCH (12:10)
[2020-04-26] MEDS: lisinopriL 10 MG TABLET PO SCH (12:10)
[2020-04-26] MEDS: EFAVIRENZ 600 MG PO SCH (12:10)
[2020-04-26] MEDS: DULoxetine 30 MG CAPSULE PO SCH (12:10)
[2020-04-26] MEDS: LACTATED RINGERS 1,000 ML IV SCH (14:38)
[2020-04-26] MEDS: CYCLOBENZAPRINE 10 MG TABLET PO SCH (20:20)
[2020-04-27] MEDS: HYDROmorphone 2 MG/1 ML VIAL IV PRN ×6 (00:19→10:40)
[2020-04-27] MEDS: LACTATED RINGERS 1,000 ML IV SCH (03:05)
[2020-04-27] MEDS: VANCOMYCIN INJ 1,000 MG in SODIUM CHLORIDE 0.9% 250 ML IV SCH ×2 (06:25→18:32)
[2020-04-27] MEDS: INSULIN REGULAR 100 UNIT/ML SUBCUT SCH ×4 (08:28→20:45)
[2020-04-27] MEDS ORDERED: propofoL 200 MG/20 ML VIAL IV ONE (08:46)
[2020-04-27] MEDS ORDERED: LIDOCAINE 2% 5 ML VIAL ONE (08:46)
[2020-04-27] MEDS ORDERED: fentaNYL 100 MCG/2 ML VIAL ONE (08:46)
[2020-04-27] MEDS ORDERED: ONDANSETRON 4 MG/2 ML VIAL ONE ×2 (08:46→09:45)
[2020-04-27] MEDS ORDERED: ROPIVACAINE 0.5% 30 ML VIAL ONE (09:22)
[2020-04-27] MEDS ORDERED: SEVOFLURANE 1 UNIT/15 MINUTE INH ONE (09:38)
[2020-04-27] MEDS ORDERED: GLUCAGON 1 MG VIAL IM PRN (09:46)
[2020-04-27] MEDS ORDERED: NALOXONE 0.4 MG/ML VIAL IV PRN (09:46)
[2020-04-27] MEDS ORDERED: DEXTROSE 50% 25 GM/50 ML VIAL IV PRN (09:46)
[2020-04-27] MEDS: EFAVIRENZ 600 MG PO SCH (09:53)
[2020-04-27] MEDS: COMBIVIR PO SCH ×2 (09:53→23:30)
[2020-04-27] MEDS: PREGABALIN 100 MG CAPSULE PO SCH (09:53)
[2020-04-27] MEDS: DULoxetine 30 MG CAPSULE PO SCH (09:53)
[2020-04-27] MEDS: lisinopriL 10 MG TABLET PO SCH (09:53)
[2020-04-27] MEDS ORDERED: ONDANSETRON 4 MG/2 ML VIAL IV PRN (10:08)
[2020-04-27] MEDS: HYDROmorphone PCA 30 MG/30 ML SYRINGE IV SCH (10:21)
[2020-04-27] MEDS ORDERED: diphenhydrAMINE 50 MG/1 ML VIAL ONE (10:28)
[2020-04-27] MEDS ORDERED: KETOROLAC 30 MG/1 ML VIAL IV ONE (10:30)
[2020-04-27] MEDS: diphenhydrAMINE 50 MG/1 ML VIAL IV PRN ×2 (10:34→11:47)
[2020-04-27] MEDS ORDERED: DEXAMETHASONE 10 MG/1 ML VIAL IV ONE (12:08)
[2020-04-27] MEDS: KETOROLAC 10 MG TABLET PO SCH (18:31)
[2020-04-27] MEDS: CYCLOBENZAPRINE 10 MG TABLET PO SCH (20:43)
[2020-04-28] MEDS: KETOROLAC 10 MG TABLET PO SCH ×5 (00:05→23:37)
[2020-04-28] MEDS: VANCOMYCIN INJ 1,000 MG in SODIUM CHLORIDE 0.9% 250 ML IV SCH ×2 (05:29→16:49)
[2020-04-28 06:30] LABS: Calcium 9.3 MG/DL (8.5-10.1); Osmolality,Calculated 276.5 MOS/KG (273-304)
[2020-04-28] MEDS: MAGNESIUM HYDROXIDE SUSP 30 ML UDCUP PO PRN (10:07)
[2020-04-28] MEDS: lisinopriL 10 MG TABLET PO SCH (10:07)
[2020-04-28] MEDS: PREGABALIN 100 MG CAPSULE PO SCH (10:07)
[2020-04-28] MEDS: oxyCODONE/ACETAMINOPHEN 5-325 MG TABLET PO PRN ×3 (10:07→20:23)
[2020-04-28] MEDS: DULoxetine 30 MG CAPSULE PO SCH (10:07)
[2020-04-28] MEDS: COMBIVIR PO SCH ×2 (10:08→20:58)
[2020-04-28] MEDS: EFAVIRENZ 600 MG PO SCH (10:08)
[2020-04-28] MEDS: INSULIN REGULAR 100 UNIT/ML SUBCUT SCH ×4 (16:03→20:57)
[2020-04-28] MEDS: HYDROmorphone PCA 30 MG/30 ML SYRINGE IV SCH (16:05)
[2020-04-28] MEDS: LACTATED RINGERS 1,000 ML IV SCH (19:36)
[2020-04-28] MEDS: CYCLOBENZAPRINE 10 MG TABLET PO SCH (20:23)
[2020-04-29] MEDS: oxyCODONE/ACETAMINOPHEN 5-325 MG TABLET PO PRN ×5 (00:30→21:35)
[2020-04-29] MEDS: LACTATED RINGERS 1,000 ML IV SCH ×2 (00:33→17:39)
[2020-04-29] MEDS ORDERED: VANCOMYCIN INJ 1,750 MG in SODIUM CHLORIDE 0.9% 500 ML IV ONE (01:00)
[2020-04-29] MEDS: KETOROLAC 10 MG TABLET PO SCH ×4 (06:01→23:30)
[2020-04-29] MEDS: MAGNESIUM HYDROXIDE SUSP 30 ML UDCUP PO PRN (06:05)
[2020-04-29] MEDS: INSULIN REGULAR 100 UNIT/ML SUBCUT SCH ×4 (08:25→21:27)
[2020-04-29] MEDS: DULoxetine 30 MG CAPSULE PO SCH (10:15)
[2020-04-29] MEDS: PREGABALIN 100 MG CAPSULE PO SCH (10:15)
[2020-04-29] MEDS: HYDROmorphone PCA 30 MG/30 ML SYRINGE IV SCH (10:15)
[2020-04-29] MEDS: lisinopriL 10 MG TABLET PO SCH (10:15)
[2020-04-29] MEDS: VANCOMYCIN INJ 1,000 MG in SODIUM CHLORIDE 0.9% 250 ML IV SCH (14:48)
[2020-04-29] MEDS: EFAVIRENZ 600 MG PO SCH (17:37)
[2020-04-29] MEDS: COMBIVIR PO SCH ×2 (17:38→21:36)
[2020-04-29] MEDS: CYCLOBENZAPRINE 10 MG TABLET PO SCH (21:35)
[2020-04-30] MEDS: oxyCODONE/ACETAMINOPHEN 5-325 MG TABLET PO PRN ×3 (01:33→21:08)
[2020-04-30] MEDS: VANCOMYCIN INJ 1,000 MG in SODIUM CHLORIDE 0.9% 250 ML IV SCH (01:39)
[2020-04-30] MEDS: KETOROLAC 10 MG TABLET PO SCH ×3 (06:00→18:14)
[2020-04-30] MEDS: INSULIN REGULAR 100 UNIT/ML SUBCUT SCH ×4 (08:29→22:28)
[2020-04-30] MEDS: DULoxetine 30 MG CAPSULE PO SCH (08:38)
[2020-04-30] MEDS: lisinopriL 10 MG TABLET PO SCH (08:39)
[2020-04-30] MEDS: PREGABALIN 100 MG CAPSULE PO SCH (08:39)
[2020-04-30] MEDS: EFAVIRENZ 600 MG PO SCH (08:40)
[2020-04-30] MEDS: COMBIVIR PO SCH ×2 (08:40→22:28)
[2020-04-30] MEDS: HYDROmorphone PCA 30 MG/30 ML SYRINGE IV SCH (18:09)
[2020-04-30] MEDS: CYCLOBENZAPRINE 10 MG TABLET PO SCH (21:08)
[2020-05-01] MEDS: LACTATED RINGERS 1,000 ML IV SCH (00:29)
[2020-05-01] MEDS: KETOROLAC 10 MG TABLET PO SCH ×4 (00:31→17:22)
[2020-05-01] MEDS: INSULIN REGULAR 100 UNIT/ML SUBCUT SCH ×4 (08:29→21:27)
[2020-05-01] MEDS: oxyCODONE/ACETAMINOPHEN 5-325 MG TABLET PO PRN ×4 (08:30→22:35)
[2020-05-01] MEDS: DULoxetine 30 MG CAPSULE PO SCH (08:30)
[2020-05-01] MEDS: lisinopriL 10 MG TABLET PO SCH (08:30)
[2020-05-01] MEDS: PREGABALIN 100 MG CAPSULE PO SCH (08:30)
[2020-05-01] MEDS: COMBIVIR PO SCH ×2 (08:32→21:27)
[2020-05-01] MEDS: EFAVIRENZ 600 MG PO SCH (08:32)
[2020-05-01] MEDS: CYCLOBENZAPRINE 10 MG TABLET PO SCH (21:28)
[2020-05-02] MEDS: KETOROLAC 10 MG TABLET PO SCH ×3 (00:42→13:17)
[2020-05-02] MEDS: oxyCODONE/ACETAMINOPHEN 5-325 MG TABLET PO PRN ×3 (04:41→14:57)
[2020-05-02 06:20] LABS: Basophils % 0.5 % (0.0-0.8); Eosinophils # 0.2 10*3/uL (0.0-0.87); Eosinophils % 2.9 % (0.00-10.9); Hematocrit 35.4 VOL% (35.7-47.0); Hemoglobin 11.9 GM/DL (12.0-16.0); Immature Granulocytes % 0.2 %; Immature Granulocytes Absolute 0.02 #; Lymphocytes # 3.1 10*3/uL (1.4-4.0); Lymphocytes % 38.1 % (21.3-54.2); Mean Corpuscular HGB Conc 33.6 GM/DL (32-36); Mean Corpuscular Volume 85.7 FL (87-102); Mean Platelet Volume 10.2 FL (9.6-12.0); Neutrophils % 47.3 % (38.7-73.9); Platelet Count 303 T/CUMM (130-400); Red Blood Count 4.13 MC/CUMM (3.8-5.5); Red Cell Distribution Width 14.3 % (9.3-17.3); White Blood Count 8.3 T/CUMM (4-12)
[2020-05-02 06:40] LABS: Calcium 8.8 MG/DL (8.5-10.1); Osmolality,Calculated 283.1 MOS/KG (273-304); Potassium 3.9 MMOL/L (3.5-5.1)
[2020-05-02 06:47] LABS: Hypochromasia 1+; Microcytosis 1+
[2020-05-02 06:48] LABS: Platelet Estimate Normal; Target Cells Slight
[2020-05-02] MEDS: INSULIN REGULAR 100 UNIT/ML SUBCUT SCH ×2 (08:57→13:17)
[2020-05-02] MEDS: DULoxetine 30 MG CAPSULE PO SCH (08:59)
[2020-05-02] MEDS: PREGABALIN 100 MG CAPSULE PO SCH (08:59)
[2020-05-02] MEDS: lisinopriL 10 MG TABLET PO SCH (08:59)
[2020-05-02] MEDS: EFAVIRENZ 600 MG PO SCH (09:01)
[2020-05-02] MEDS: COMBIVIR PO SCH (09:01)
[2020-05-02 12:01] VITALS: BP 151/79
== END 2020-05-02 16:27 | disposition home or self-care (01) | DRG 240 ==
LOC: N.3E 13:58
PROVIDERS: ADMIT Surgery; ATTEND Surgery

== ENCOUNTER 2020-07-24 13:07 | Inpatient (IN) ==
[2020-07-24] MEDS ORDERED: ONDANSETRON 4 MG/2 ML VIAL IV STA (13:33)
[2020-07-24] MEDS ORDERED: HYDROmorphone 2 MG/1 ML VIAL IV STA (13:33)
[2020-07-24 14:01] LABS: Basophils % 0.4 % (0.0-0.8); Eosinophils # 0.3 10*3/uL (0.0-0.87); Eosinophils % 3.7 % (0.00-10.9); Hematocrit 35.7 VOL% (35.7-47.0); Hemoglobin 11.7 GM/DL (12.0-16.0); Immature Granulocytes % 0.3 %; Immature Granulocytes Absolute 0.03 #; Lymphocytes # 3.6 10*3/uL (1.4-4.0); Lymphocytes % 39.8 % (21.3-54.2); Mean Corpuscular HGB Conc 32.8 GM/DL (32-36); Mean Corpuscular Volume 87.1 FL (87-102); Mean Platelet Volume 9.1 FL (9.6-12.0); Monocytes % 7.1 % (1.7-12.7); Neutrophils % 48.7 % (38.7-73.9); Platelet Count 392 T/CUMM (130-400); Red Cell Distribution Width 15.7 % (9.3-17.3)
[2020-07-24 14:17] LABS: Alanine Aminotransferase 14 U/L (13-56); Albumin 3.1 G/DL (3.4-5.0); Alkaline Phosphatase 152 U/L (45-117); Aspartate Amino Transferase 25 U/L (0-37); Bilirubin,Total < 0.39 MG/DL (0.2-1.0); Blood Urea Nitrogen 9 MG/DL (7-18); Calcium 9.2 MG/DL (8.5-10.1); Carbon Dioxide 29 MMOL/L (21-32); Estimated Glom Filtration Rate 110 ML/MIN; Glucose 83 MG/DL (74-106); Osmolality,Calculated 272.7 MOS/KG (273-304); Potassium 3.5 MMOL/L (3.5-5.1); Sodium 138 MMOL/L (136-145); Total Protein 7.7 G/DL (6.4-8.2)
[2020-07-24] MEDS ORDERED: VANCOMYCIN INJ 1,000 MG in SODIUM CHLORIDE 0.9% 250 ML IV STA (15:04)
[2020-07-24] MEDS ORDERED: LEVOFLOXACIN INJ 500 MG/100 ML PREMIX IV SCH (15:30)
[2020-07-24] MEDS ORDERED: ACETAMINOPHEN 325 MG TABLET PO PRN (17:10)
[2020-07-24] MEDS ORDERED: ONDANSETRON 4 MG/2 ML VIAL IV PRN (17:10)
[2020-07-24] MEDS ORDERED: INSULIN NPH/REGULAR 70/30 100 UNIT/ML SUBCUT PRN (17:38)
[2020-07-24] MEDS ORDERED: MAGNESIUM HYDROXIDE SUSP 30 ML UDCUP PO PRN (17:38)
[2020-07-24] MEDS ORDERED: DEXTROSE 50% 25 GM/50 ML VIAL IV PRN (17:40)
[2020-07-24] MEDS ORDERED: GLUCAGON 1 MG VIAL IM PRN (17:40)
[2020-07-24] MEDS ORDERED: NALOXONE 0.4 MG/ML VIAL IV PRN (17:41)
[2020-07-24] MEDS: LACTATED RINGERS 1,000 ML IV SCH (18:05)
[2020-07-24] MEDS ORDERED: LINACLOTIDE 145 MCG CAPSULE PO PRN (18:27)
[2020-07-24 18:28] LABS: Alanine Aminotransferase 11 U/L (13-56); Albumin 2.7 G/DL (3.4-5.0); Alkaline Phosphatase 140 U/L (45-117); Aspartate Amino Transferase 15 U/L (0-37); Bilirubin,Total < 0.39 MG/DL (0.2-1.0); Blood Urea Nitrogen 7 MG/DL (7-18); Calcium 9.1 MG/DL (8.5-10.1); Carbon Dioxide 28 MMOL/L (21-32); Estimated Glom Filtration Rate 120 ML/MIN; Glucose 87 MG/DL (74-106); Osmolality,Calculated 275.4 MOS/KG (273-304); Potassium 3.1 MMOL/L (3.5-5.1); Sodium 140 MMOL/L (136-145)
[2020-07-24] MEDS: HYDROmorphone PCA 30 MG/30 ML SYRINGE IV SCH (19:18)
[2020-07-24] MEDS: SIMVASTATIN 10 MG TABLET PO SCH (21:36)
[2020-07-24] MEDS: LORazepam 1 MG TABLET PO SCH (21:36)
[2020-07-24] MEDS: CYCLOBENZAPRINE 10 MG TABLET PO SCH (21:36)
[2020-07-24] MEDS: GABAPENTIN 400 MG CAPSULE PO SCH (21:36)
[2020-07-24] MEDS: cilostazoL 100 MG TABLET PO SCH (21:36)
[2020-07-24] MEDS: INSULIN REGULAR 100 UNIT/ML SUBCUT SCH (21:36)
[2020-07-25] MEDS: LACTATED RINGERS 1,000 ML IV SCH ×3 (03:48→23:15)
[2020-07-25] MEDS ORDERED: VANCOMYCIN INJ 1,000 MG in SODIUM CHLORIDE 0.9% 250 ML IV ONE (08:23)
[2020-07-25] MEDS: INSULIN REGULAR 100 UNIT/ML SUBCUT SCH ×4 (08:32→20:19)
[2020-07-25] MEDS ORDERED: fentaNYL 100 MCG/2 ML VIAL ONE (08:36)
[2020-07-25] MEDS ORDERED: MIDAZOLAM 2 MG/2 ML VIAL ONE (08:36)
[2020-07-25] MEDS ORDERED: propofoL 200 MG/20 ML VIAL IV ONE (08:36)
[2020-07-25] MEDS ORDERED: LIDOCAINE 2% 5 ML VIAL ONE (08:36)
[2020-07-25] MEDS ORDERED: ACETAMINOPHEN INJ 1,000 MG/100 ML VIAL IV ONE (09:22)
[2020-07-25] MEDS ORDERED: ACETAMINOPHEN INJ 0 MG/0 ML VIAL IV ONE (09:22)
[2020-07-25] MEDS ORDERED: KETOROLAC 30 MG/1 ML VIAL ONE (09:22)
[2020-07-25] MEDS ORDERED: HYDROmorphone 2 MG/1 ML VIAL ONE (09:23)
[2020-07-25] MEDS ORDERED: SUCCINYLCHOLINE 200 MG/10 ML VIAL ONE (09:25)
[2020-07-25] MEDS ORDERED: ONDANSETRON 4 MG/2 ML VIAL ONE ×2 (09:25)
[2020-07-25] MEDS ORDERED: SEVOFLURANE 1 UNIT/15 MINUTE INH ONE ×2 (09:25→10:29)
[2020-07-25] MEDS ORDERED: DEXAMETHASONE 4 MG/1 ML VIAL ONE (09:43)
[2020-07-25] MEDS ORDERED: BISACODYL 5 MG TABLET PO PRN (10:09)
[2020-07-25] MEDS ORDERED: DEXTROSE 50% 25 GM/50 ML VIAL IV PRN (10:09)
[2020-07-25] MEDS ORDERED: KETOROLAC 10 MG TABLET PO PRN (10:09)
[2020-07-25] MEDS ORDERED: GLUCAGON 1 MG VIAL IM PRN (10:09)
[2020-07-25] MEDS ORDERED: ONDANSETRON 4 MG/2 ML VIAL IV PRN (10:29)
[2020-07-25] MEDS: HYDROmorphone 2 MG/1 ML VIAL IV PRN ×4 (10:34→11:00)
[2020-07-25] MEDS: ASPIRIN EC 81 MG TABLET PO SCH (13:04)
[2020-07-25] MEDS: LORazepam 1 MG TABLET PO SCH ×2 (13:04→20:20)
[2020-07-25] MEDS: GABAPENTIN 400 MG CAPSULE PO SCH ×3 (13:05→20:20)
[2020-07-25] MEDS: lisinopriL 10 MG TABLET PO SCH (13:05)
[2020-07-25] MEDS: DULoxetine 30 MG CAPSULE PO SCH (13:05)
[2020-07-25] MEDS: cilostazoL 100 MG TABLET PO SCH ×2 (13:05→20:20)
[2020-07-25] MEDS: PANTOPRAZOLE 40 MG TABLET PO SCH (13:06)
[2020-07-25] MEDS: ELVITEGRAVIR PO SCH (14:26)
[2020-07-25] MEDS: EMTRICITABINE PO SCH (14:26)
[2020-07-25] MEDS: TENOFOVIR DISOPROXIL PO SCH (14:26)
[2020-07-25] MEDS: COBICISTAT PO SCH (14:26)
[2020-07-25] MEDS: HYDROmorphone PCA 30 MG/30 ML SYRINGE IV SCH (20:19)
[2020-07-25] MEDS: CYCLOBENZAPRINE 10 MG TABLET PO SCH (20:20)
[2020-07-25] MEDS: SIMVASTATIN 10 MG TABLET PO SCH (20:20)
[2020-07-26] MEDS: LACTATED RINGERS 1,000 ML IV SCH ×2 (02:28→12:16)
[2020-07-26] MEDS: ENOXAPARIN 40 MG/0.4 ML SYRINGE SUBCUT SCH (05:07)
[2020-07-26 06:24] LABS: Calcium 8.4 MG/DL (8.5-10.1); Osmolality,Calculated 280.3 MOS/KG (273-304); Potassium 3.8 MMOL/L (3.5-5.1)
[2020-07-26 06:41] LABS: Basophils % 0.2 % (0.0-0.8); Eosinophils # 0.2 10*3/uL (0.0-0.87); Eosinophils % 1.9 % (0.00-10.9); Hematocrit 27.2 VOL% (35.7-47.0); Immature Granulocytes % 0.5 %; Immature Granulocytes Absolute 0.05 #; Lymphocytes # 3.3 10*3/uL (1.4-4.0); Lymphocytes % 30.5 % (21.3-54.2); Mean Corpuscular HGB Conc 32.7 GM/DL (32-36); Mean Corpuscular Volume 86.1 FL (87-102); Mean Platelet Volume 9.5 FL (9.6-12.0); Monocytes % 7.3 % (1.7-12.7); Neutrophils % 59.6 % (38.7-73.9); Platelet Count 325 T/CUMM (130-400); Red Cell Distribution Width 15.4 % (9.3-17.3); White Blood Count 10.9 T/CUMM (4-12)
[2020-07-26 06:44] LABS: Red Blood Count 3.16 MC/CUMM (3.8-5.5)
[2020-07-26 06:45] LABS: Hemoglobin 8.9 GM/DL (12.0-16.0)
[2020-07-26 06:51] LABS: Hypochromasia Slight; Microcytosis Slight; Platelet Estimate Adequate
[2020-07-26] MEDS ORDERED: HYDROmorphone 2 MG/1 ML VIAL IV ONE (08:35)
[2020-07-26] MEDS: INSULIN REGULAR 100 UNIT/ML SUBCUT SCH ×4 (09:08→21:39)
[2020-07-26] MEDS: DULoxetine 30 MG CAPSULE PO SCH (09:13)
[2020-07-26] MEDS: cilostazoL 100 MG TABLET PO SCH ×2 (09:13→21:39)
[2020-07-26] MEDS: GABAPENTIN 400 MG CAPSULE PO SCH ×3 (09:13→21:39)
[2020-07-26] MEDS: LORazepam 1 MG TABLET PO SCH ×2 (09:13→21:39)
[2020-07-26] MEDS: ASPIRIN EC 81 MG TABLET PO SCH (09:13)
[2020-07-26] MEDS: PANTOPRAZOLE 40 MG TABLET PO SCH (09:14)
[2020-07-26] MEDS: lisinopriL 10 MG TABLET PO SCH (09:14)
[2020-07-26] MEDS: ELVITEGRAVIR PO SCH (09:27)
[2020-07-26] MEDS: TENOFOVIR DISOPROXIL PO SCH (09:27)
[2020-07-26] MEDS: EMTRICITABINE PO SCH (09:27)
[2020-07-26] MEDS: COBICISTAT PO SCH (09:27)
[2020-07-26] MEDS: SIMVASTATIN 10 MG TABLET PO SCH (21:39)
[2020-07-26] MEDS: CYCLOBENZAPRINE 10 MG TABLET PO SCH (21:39)
[2020-07-27] MEDS: LACTATED RINGERS 1,000 ML IV SCH ×4 (03:15→13:02)
[2020-07-27] MEDS: INSULIN REGULAR 100 UNIT/ML SUBCUT SCH ×2 (08:34→12:46)
[2020-07-27] MEDS: EMTRICITABINE PO SCH (08:35)
[2020-07-27] MEDS: lisinopriL 10 MG TABLET PO SCH (08:35)
[2020-07-27] MEDS: TENOFOVIR DISOPROXIL PO SCH (08:35)
[2020-07-27] MEDS: DULoxetine 30 MG CAPSULE PO SCH (08:35)
[2020-07-27] MEDS: ELVITEGRAVIR PO SCH (08:35)
[2020-07-27] MEDS: ASPIRIN EC 81 MG TABLET PO SCH (08:35)
[2020-07-27] MEDS: cilostazoL 100 MG TABLET PO SCH (08:35)
[2020-07-27] MEDS: PANTOPRAZOLE 40 MG TABLET PO SCH (08:35)
[2020-07-27] MEDS: GABAPENTIN 400 MG CAPSULE PO SCH (08:35)
[2020-07-27] MEDS: COBICISTAT PO SCH (08:35)
[2020-07-27] MEDS: LORazepam 1 MG TABLET PO SCH (08:35)
[2020-07-27 11:36] VITALS: BP 166/78
[2020-07-27] MEDS: ENOXAPARIN 40 MG/0.4 ML SYRINGE SUBCUT SCH (12:42)
[2020-07-27] MEDS: HYDROmorphone PCA 30 MG/30 ML SYRINGE IV SCH (12:43)
== END 2020-07-27 13:38 | DRG 240 ==
LOC: EDUNIT# → EDBD → N.ED 13:07 → N.EDINP 15:05 → N.3E 17:00
PROVIDERS: ADMIT Surgery; ATTEND Surgery

== ENCOUNTER 2020-08-20 14:30 | Observation (INO) ==
[2020-08-20] MEDS ORDERED: HYDROmorphone 2 MG/1 ML VIAL IV STA ×2 (15:35→16:59)
[2020-08-20] MEDS ORDERED: ONDANSETRON 4 MG/2 ML VIAL IV STA (15:35)
[2020-08-20 16:29] LABS: Basophils % 0.3 % (0.0-0.8); Eosinophils # 0.1 10*3/uL (0.0-0.87); Eosinophils % 1.3 % (0.00-10.9); Hematocrit 38.6 VOL% (35.7-47.0); Hemoglobin 12.2 GM/DL (12.0-16.0); Immature Granulocytes % 0.3 %; Immature Granulocytes Absolute 0.02 #; Lymphocytes # 1.3 10*3/uL (1.4-4.0); Mean Corpuscular HGB Conc 31.6 GM/DL (32-36); Mean Corpuscular Volume 87.9 FL (87-102); Mean Platelet Volume 9.1 FL (9.6-12.0); Monocytes % 7.6 % (1.7-12.7); Neutrophils % 70.5 % (38.7-73.9); Platelet Count 246 T/CUMM (130-400); Red Blood Count 4.39 MC/CUMM (3.8-5.5); Red Cell Distribution Width 14.4 % (9.3-17.3); White Blood Count 6.7 T/CUMM (4-12)
[2020-08-20 16:46] LABS: Osmolality,Calculated 277.4 MOS/KG (273-304); Potassium 3.9 MMOL/L (3.5-5.1)
[2020-08-20] MEDS ORDERED: HYDROmorphone 2 MG/1 ML VIAL IV PRN (18:21)
[2020-08-20] MEDS ORDERED: DEXTROSE 50% 25 GM/50 ML VIAL IV PRN ×3 (18:24→18:55)
[2020-08-20] MEDS ORDERED: ONDANSETRON 4 MG/2 ML VIAL IV PRN ×2 (18:24→18:55)
[2020-08-20] MEDS ORDERED: GLUCAGON 1 MG VIAL IM PRN ×2 (18:24→18:55)
[2020-08-20] MEDS ORDERED: ENOXAPARIN 40 MG/0.4 ML SYRINGE SUBCUT SCH (18:30)
[2020-08-20] MEDS ORDERED: ACETAMINOPHEN 325 MG TABLET PO PRN (18:55)
[2020-08-20] MEDS ORDERED: PROMETHAZINE 25 MG/1 ML VIAL IM PRN (18:55)
[2020-08-20 19:26] LABS: Risk Ratio 2.02; Thyroid Stimulating Hormone 0.503 uIU/ml (0.358-3.74)
[2020-08-20] MEDS: HYDROmorphone 2 MG/1 ML VIAL IV PRN ×2 (19:57→23:34)
[2020-08-20] MEDS ORDERED: INSULIN LISPRO 100 UNIT/ML SUBCUT SCH (21:00)
[2020-08-20] MEDS: INSULIN REGULAR 100 UNIT/ML SUBCUT SCH (21:56)
[2020-08-20] MEDS: SIMVASTATIN 10 MG TABLET PO SCH (22:03)
[2020-08-20] MEDS: cilostazoL 100 MG TABLET PO SCH (22:03)
[2020-08-20] MEDS: GABAPENTIN 300 MG CAPSULE PO SCH ×2 (22:03→22:06)
[2020-08-20] MEDS: SODIUM CHLORIDE 0.45% 1,000 ML IV SCH (22:03)
[2020-08-20] MEDS: INSULIN NPH/REGULAR 70/30 100 UNIT/ML SUBCUT SCH (22:04)
[2020-08-20] MEDS: LEVOFLOXACIN INJ 750 MG/150 ML PREMIX IV SCH (22:05)
[2020-08-21] MEDS: SODIUM CHLORIDE 0.45% 1,000 ML IV SCH ×3 (03:26→14:42)
[2020-08-21] MEDS: HYDROmorphone 2 MG/1 ML VIAL IV PRN ×3 (04:52→22:32)
[2020-08-21 05:27] LABS: Basophils % 0.2 % (0.0-0.8); Eosinophils # 0.2 10*3/uL (0.0-0.87); Eosinophils % 2.9 % (0.00-10.9); Hematocrit 22.7 VOL% (35.7-47.0); Immature Granulocytes % 0.2 %; Immature Granulocytes Absolute 0.02 #; Lymphocytes # 3.1 10*3/uL (1.4-4.0); Lymphocytes % 38.6 % (21.3-54.2); Mean Corpuscular HGB Conc 31.3 GM/DL (32-36); Mean Corpuscular Volume 90.4 FL (87-102); Mean Platelet Volume 9.4 FL (9.6-12.0); Monocytes % 9.4 % (1.7-12.7); Neutrophils % 48.7 % (38.7-73.9); Platelet Count 321 T/CUMM (130-400); Red Blood Count 2.51 MC/CUMM (3.8-5.5); Red Cell Distribution Width 14.5 % (9.3-17.3); White Blood Count 8.1 T/CUMM (4-12)
[2020-08-21 05:30] LABS: Hemoglobin 7.1 GM/DL (12.0-16.0)
[2020-08-21 05:32] LABS: Calcium 9.2 MG/DL (8.5-10.1); Osmolality,Calculated 270.8 MOS/KG (273-304); Potassium 4.2 MMOL/L (3.5-5.1)
[2020-08-21 05:38] LABS: Eosinophils 3 % (0-10); Hypochromasia 1+; Lymphocytes 36 % (20-55); Platelet Estimate Normal; Segmented Neutrophils 59 % (50-85); Total Cells Counted 100
[2020-08-21] MEDS: cilostazoL 100 MG TABLET PO SCH (08:57)
[2020-08-21] MEDS: ASPIRIN EC 81 MG TABLET PO SCH (08:57)
[2020-08-21] MEDS: lisinopriL 20 MG TABLET PO SCH (08:58)
[2020-08-21] MEDS: CLOPIDOGREL 75 MG TABLET PO SCH (08:58)
[2020-08-21] MEDS: PANTOPRAZOLE 40 MG TABLET PO SCH (08:58)
[2020-08-21] MEDS: GABAPENTIN 300 MG CAPSULE PO SCH ×3 (08:58→21:07)
[2020-08-21] MEDS: INSULIN REGULAR 100 UNIT/ML SUBCUT SCH ×4 (08:59→22:24)
[2020-08-21] MEDS: INSULIN NPH/REGULAR 70/30 100 UNIT/ML SUBCUT SCH ×2 (09:01→17:18)
[2020-08-21] MEDS ORDERED: PROMETHAZINE 25 MG TABLET PO PRN (13:11)
[2020-08-21] MEDS ORDERED: LINACLOTIDE 145 MCG CAPSULE PO PRN (13:11)
[2020-08-21] MEDS ORDERED: BISACODYL 5 MG TABLET PO PRN (13:11)
[2020-08-21] MEDS: MORPHINE ER 15 MG TABLET PO SCH (13:43)
[2020-08-21] MEDS: PREGABALIN 75 MG CAPSULE PO SCH (21:07)
[2020-08-21] MEDS: LORazepam 1 MG TABLET PO SCH (21:07)
[2020-08-21] MEDS: SIMVASTATIN 10 MG TABLET PO SCH (21:07)
[2020-08-21] MEDS: LEVOFLOXACIN INJ 750 MG/150 ML PREMIX IV SCH (21:08)
[2020-08-21] MEDS: diphenhydrAMINE CAP 25 MG CAPSULE PO PRN (22:32)
[2020-08-22] MEDS: MORPHINE ER 15 MG TABLET PO SCH ×2 (01:38→14:14)
[2020-08-22 05:54] LABS: Basophils % 0.3 % (0.0-0.8); Eosinophils # 0.3 10*3/uL (0.0-0.87); Eosinophils % 3.8 % (0.00-10.9); Hematocrit 21.5 VOL% (35.7-47.0); Hemoglobin 6.7 GM/DL (12.0-16.0); Immature Granulocytes % 0.3 %; Immature Granulocytes Absolute 0.02 #; Lymphocytes # 3.7 10*3/uL (1.4-4.0); Lymphocytes % 51.2 % (21.3-54.2); Mean Corpuscular HGB Conc 31.2 GM/DL (32-36); Mean Corpuscular Volume 89.6 FL (87-102); Mean Platelet Volume 9.3 FL (9.6-12.0); Monocytes % 10.9 % (1.7-12.7); Neutrophils % 33.5 % (38.7-73.9); Platelet Count 298 T/CUMM (130-400); Red Cell Distribution Width 14.1 % (9.3-17.3); White Blood Count 7.1 T/CUMM (4-12)
[2020-08-22 06:14] LABS: Calcium 8.9 MG/DL (8.5-10.1); Osmolality,Calculated 275.7 MOS/KG (273-304); Potassium 3.7 MMOL/L (3.5-5.1)
[2020-08-22 06:17] LABS: Atypical Lymphocytes Few; Eosinophils 2 % (0-10); Hypochromasia 1+; Lymphocytes 49 % (20-55); Segmented Neutrophils 36 % (50-85); Total Cells Counted 100
[2020-08-22 06:18] LABS: Microcytosis 1+; Platelet Estimate Normal
[2020-08-22] MEDS: PANTOPRAZOLE 40 MG TABLET PO SCH (09:24)
[2020-08-22] MEDS: LORazepam 1 MG TABLET PO SCH ×2 (09:24→21:09)
[2020-08-22] MEDS: lisinopriL 20 MG TABLET PO SCH (09:24)
[2020-08-22] MEDS: GABAPENTIN 300 MG CAPSULE PO SCH ×3 (09:24→21:09)
[2020-08-22] MEDS: CLOPIDOGREL 75 MG TABLET PO SCH (09:24)
[2020-08-22] MEDS: ASPIRIN EC 81 MG TABLET PO SCH (09:24)
[2020-08-22] MEDS: PREGABALIN 75 MG CAPSULE PO SCH ×2 (09:24→21:09)
[2020-08-22] MEDS: INSULIN NPH/REGULAR 70/30 100 UNIT/ML SUBCUT SCH ×2 (09:25→16:33)
[2020-08-22] MEDS: INSULIN REGULAR 100 UNIT/ML SUBCUT SCH ×4 (09:25→21:23)
[2020-08-22] MEDS: MEGESTROL 400 MG/10 ML UDCUP PO SCH (09:25)
[2020-08-22] MEDS: DICLOFENAC 1% GEL 100 GM TUBE TOP SCH ×2 (14:14→21:16)
[2020-08-22] MEDS ORDERED: SODIUM CHLORIDE 0.9% 1,000 ML IV PRN (15:24)
[2020-08-22] MEDS: LEVOFLOXACIN INJ 750 MG/150 ML PREMIX IV SCH (21:09)
[2020-08-22] MEDS: SIMVASTATIN 10 MG TABLET PO SCH (21:09)
[2020-08-22] MEDS: diphenhydrAMINE CAP 25 MG CAPSULE PO PRN (21:28)
[2020-08-23] MEDS: MORPHINE ER 15 MG TABLET PO SCH (00:44)
[2020-08-23 07:32] VITALS: BP 171/71
[2020-08-23 07:39] LABS: Basophils % 0.2 % (0.0-0.8); Eosinophils # 0.2 10*3/uL (0.0-0.87); Eosinophils % 2.3 % (0.00-10.9); Hematocrit 27.3 VOL% (35.7-47.0); Immature Granulocytes % 0.5 %; Immature Granulocytes Absolute 0.04 #; Lymphocytes # 3.3 10*3/uL (1.4-4.0); Mean Corpuscular HGB Conc 31.1 GM/DL (32-36); Mean Corpuscular Volume 88.6 FL (87-102); Mean Platelet Volume 9.7 FL (9.6-12.0); Monocytes % 7.8 % (1.7-12.7); Neutrophils % 51.2 % (38.7-73.9); Platelet Count 382 T/CUMM (130-400); Red Cell Distribution Width 14.6 % (9.3-17.3); White Blood Count 8.6 T/CUMM (4-12)
[2020-08-23 07:47] LABS: Hemoglobin 8.5 GM/DL (12.0-16.0); Red Blood Count 3.08 MC/CUMM (3.8-5.5)
[2020-08-23] MEDS: INSULIN NPH/REGULAR 70/30 100 UNIT/ML SUBCUT SCH (08:01)
[2020-08-23] MEDS: INSULIN REGULAR 100 UNIT/ML SUBCUT SCH (08:01)
[2020-08-23 08:02] LABS: Lymphocytes 46 % (20-55); Platelet Estimate Adequate; Segmented Neutrophils 47 % (50-85); Total Cells Counted 100
[2020-08-23 08:03] LABS: Atypical Lymphocytes Few; Hypochromasia 1+; Microcytosis 1+
[2020-08-23 08:06] LABS: Calcium 9.2 MG/DL (8.5-10.1); Osmolality,Calculated 282.1 MOS/KG (273-304); Potassium 3.7 MMOL/L (3.5-5.1)
[2020-08-23] MEDS: ASPIRIN EC 81 MG TABLET PO SCH (09:11)
[2020-08-23] MEDS: LORazepam 1 MG TABLET PO SCH (09:11)
[2020-08-23] MEDS: GABAPENTIN 300 MG CAPSULE PO SCH (09:11)
[2020-08-23] MEDS: PREGABALIN 75 MG CAPSULE PO SCH (09:11)
[2020-08-23] MEDS: PANTOPRAZOLE 40 MG TABLET PO SCH (09:12)
[2020-08-23] MEDS: lisinopriL 20 MG TABLET PO SCH (09:12)
[2020-08-23] MEDS: CLOPIDOGREL 75 MG TABLET PO SCH (09:13)
[2020-08-23] MEDS: MEGESTROL 400 MG/10 ML UDCUP PO SCH (09:15)
== END 2020-08-23 10:35 | disposition home health service (06) ==
LOC: EDBD → EDUNIT# → N.EDINP 14:30 → N.ED 14:30 → SUATTDRO 17:39 → N.EDINP 18:43 → N.3E 18:58
PROVIDERS: ADMIT Student in an Organized Health Care Education/Training Program; ATTEND Student in an Organized Health Care Education/Training Program

== ENCOUNTER 2020-12-16 19:04 | Inpatient (IN) ==
[2020-12-16] MEDS ORDERED: ONDANSETRON 4 MG/2 ML VIAL IV STA (19:41)
[2020-12-16] MEDS ORDERED: SODIUM CHLORIDE 0.9% 1,000 ML IV STA ×2 (19:41→21:48)
[2020-12-16 19:50] LABS: Basophils % 0.4 % (0.0-0.8); Eosinophils # 0.1 10*3/uL (0.0-0.87); Eosinophils % 0.6 % (0.00-10.9); Hemoglobin 12.8 GM/DL (12.0-16.0); Immature Granulocytes % 0.6 %; Immature Granulocytes Absolute 0.06 #; Lymphocytes # 2.9 10*3/uL (1.4-4.0); Lymphocytes % 29.5 % (21.3-54.2); Mean Corpuscular HGB Conc 32.8 GM/DL (32-36); Mean Corpuscular Volume 82.5 FL (87-102); Mean Platelet Volume 9.3 FL (9.6-12.0); Monocytes % 9.7 % (1.7-12.7); Neutrophils % 59.2 % (38.7-73.9); Platelet Count 303 T/CUMM (130-400); Red Blood Count 4.73 MC/CUMM (3.8-5.5); Red Cell Distribution Width 22.4 % (9.3-17.3); White Blood Count 9.8 T/CUMM (4-12)
[2020-12-16 20:09] LABS: Alanine Aminotransferase 22 U/L (13-56); Albumin 4.1 G/DL (3.4-5.0); Alkaline Phosphatase 117 U/L (45-117); Amylase 109 U/L (25-115); Aspartate Amino Transferase 15 U/L (0-37); Bilirubin,Total < 0.39 MG/DL (0.20-1.00); Blood Urea Nitrogen 51 MG/DL (7-18); Calcium 10.2 MG/DL (8.5-10.1); Carbon Dioxide 30 MMOL/L (21-32); Estimated Glom Filtration Rate 14 ML/MIN; Glucose 273 MG/DL (74-106); Osmolality,Calculated 287.5 MOS/KG (273-304); Potassium 3.8 MMOL/L (3.5-5.1); Sodium 132 MMOL/L (136-145); Total Protein 7.5 G/DL (6.4-8.2)
[2020-12-16] MEDS ORDERED: LEVOFLOXACIN INJ 500 MG/100 ML PREMIX IV ONE (21:47)
[2020-12-16] MEDS ORDERED: ONDANSETRON 4 MG/2 ML VIAL IV ONE (21:48)
[2020-12-16] MEDS ORDERED: MORPHINE 2 MG/1 ML SYRINGE IV STA (21:48)
[2020-12-16 22:44] LABS: Bacteria,Urine Occasional /HPF (Few); Bilirubin,Urine Negative (Negative); Blood, Urine Negative (Negative); Glucose,Urine (UA) >=500 mg/dL (Negative); Hyaline Casts,Urine 25 /LPF (0-3); Ketones,Urine Negative (Negative); Mucus,Urine Occasional /LPF (Occasional); Nitrite,Urine Negative (Negative); Protein,Urine Negative; RBC,Urine 1 /HPF (0-4); Squamous Epithelial Cell,Urine Occasional /HPF (0-10); Urine Appearance Slightly Hazy (Clear); Urine Color Yellow (Yellow); Urine Specific Gravity 1.015 (1.001-1.035); Urine Urobilinogen < 2.0 EU/DL (0.2-1.0)
[2020-12-16] MEDS ORDERED: GLUCAGON 1 MG VIAL IM PRN (23:21)
[2020-12-16] MEDS ORDERED: DEXTROSE 50% 25 GM/50 ML VIAL IV PRN (23:21)
[2020-12-16] MEDS ORDERED: MAGNESIUM SULF RIDER 4 GM/100 ML PREMIX IV PRN (23:21)
[2020-12-16] MEDS ORDERED: MAGNESIUM SULF RIDER 2 GM/50 ML PREMIX IV PRN (23:21)
[2020-12-16] MEDS ORDERED: NICOTINE 21 MG/24 HR PATCH TRANSDERM PRN (23:31)
[2020-12-16] MEDS ORDERED: ACETAMINOPHEN 325 MG TABLET PO PRN (23:31)
[2020-12-16] MEDS ORDERED: hydrALAZINE 20 MG/1 ML VIAL IV PRN (23:31)
[2020-12-16] MEDS ORDERED: ALUMINUM/MAGNES/SIMETH MAX STR 30 ML UDCUP PO PRN (23:31)
[2020-12-16] MEDS ORDERED: ONDANSETRON 4 MG/2 ML VIAL IV PRN (23:33)
[2020-12-16] MEDS ORDERED: POTASSIUM CHLORIDE RIDER 10 MEQ/100 ML PREMIX IV PRN (23:33)
[2020-12-16] MEDS ORDERED: CIPROFLOXACIN INJ 400 MG/200 ML PREMIX IV SCH (23:45)
[2020-12-17] MEDS: metroNIDAZOLE INJ 500 MG/100 ML PREMIX IV SCH ×3 (01:47→15:39)
[2020-12-17] MEDS: HEPARIN 5,000 UNIT/1 ML VIAL SUBCUT SCH ×2 (01:48→12:48)
[2020-12-17] MEDS: INSULIN REGULAR 100 UNIT/ML SUBCUT SCH ×4 (01:49→19:24)
[2020-12-17] MEDS: SODIUM CHLORIDE 0.9% 1,000 ML IV SCH ×2 (02:43→08:58)
[2020-12-17] MEDS: CIPROFLOXACIN INJ 400 MG/200 ML PREMIX IV SCH ×2 (03:02→19:23)
[2020-12-17 05:12] LABS: Basophils % 0.4 % (0.0-0.8); Eosinophils # 0.2 10*3/uL (0.0-0.87); Eosinophils % 1.6 % (0.00-10.9); Immature Granulocytes % 0.5 %; Immature Granulocytes Absolute 0.05 #; Lymphocytes # 3.4 10*3/uL (1.4-4.0); Lymphocytes % 33.8 % (21.3-54.2); Mean Corpuscular HGB Conc 32.4 GM/DL (32-36); Mean Corpuscular Volume 84.6 FL (87-102); Mean Platelet Volume 9.6 FL (9.6-12.0); Monocytes % 11.3 % (1.7-12.7); Neutrophils % 52.4 % (38.7-73.9); Platelet Count 249 T/CUMM (130-400); Red Blood Count 4.02 MC/CUMM (3.8-5.5); Red Cell Distribution Width 22.2 % (9.3-17.3); White Blood Count 10.2 T/CUMM (4-12)
[2020-12-17 05:45] LABS: Alanine Aminotransferase 17 U/L (13-56); Alkaline Phosphatase 90 U/L (45-117); Aspartate Amino Transferase 12 U/L (0-37); Bilirubin,Total < 0.39 MG/DL (0.20-1.00); Blood Urea Nitrogen 44 MG/DL (7-18); Calcium 8.7 MG/DL (8.5-10.1); Carbon Dioxide 24 MMOL/L (21-32); Estimated Glom Filtration Rate 23 ML/MIN; Glucose 175 MG/DL (74-106); Osmolality,Calculated 280.4 MOS/KG (273-304); Potassium 4.2 MMOL/L (3.5-5.1); Sodium 133 MMOL/L (136-145); Total Protein 6.1 G/DL (6.4-8.2)
[2020-12-17] MEDS: TAMSULOSIN 0.4 MG CAPSULE PO SCH (11:03)
[2020-12-17] MEDS ORDERED: MORPHINE 2 MG/1 ML SYRINGE IV ONE (12:35)
[2020-12-17] MEDS ORDERED: LORazepam 2 MG/1 ML VIAL IV ONE ×4 (15:38→21:00)
[2020-12-17] MEDS ORDERED: PHENOL 1.4% THROAT SPRAY 177 ML BOTTLE PO PRN (15:38)
[2020-12-17] MEDS: MORPHINE 2 MG/1 ML SYRINGE IV PRN (15:40)
[2020-12-17] MEDS ORDERED: BISACODYL 5 MG TABLET PO PRN (20:40)
[2020-12-17] MEDS ORDERED: LINACLOTIDE 145 MCG CAPSULE PO PRN (20:48)
[2020-12-17] MEDS: LORazepam 1 MG TABLET PO SCH (22:30)
[2020-12-17] MEDS: MORPHINE ER 15 MG TABLET PO SCH (22:31)
[2020-12-17] MEDS: SIMVASTATIN 10 MG TABLET PO SCH (22:31)
[2020-12-17] MEDS: GABAPENTIN 300 MG CAPSULE PO SCH (22:31)
[2020-12-18] MEDS: SODIUM CHLORIDE 0.9% 1,000 ML IV SCH ×4 (00:47→15:35)
[2020-12-18] MEDS: metroNIDAZOLE INJ 500 MG/100 ML PREMIX IV SCH ×3 (00:47→15:00)
[2020-12-18] MEDS: HEPARIN 5,000 UNIT/1 ML VIAL SUBCUT SCH ×2 (00:48→12:29)
[2020-12-18] MEDS: INSULIN REGULAR 100 UNIT/ML SUBCUT SCH ×4 (02:13→18:10)
[2020-12-18] MEDS: MORPHINE 2 MG/1 ML SYRINGE IV PRN ×2 (02:13→18:07)
[2020-12-18] MEDS: INSULIN NPH/REGULAR 70/30 100 UNIT/ML SUBCUT SCH ×2 (06:59→10:08)
[2020-12-18 07:01] LABS: Basophils % 0.4 % (0.0-0.8); Eosinophils # 0.2 10*3/uL (0.0-0.87); Hematocrit 31.6 VOL% (35.7-47.0); Hemoglobin 10.2 GM/DL (12.0-16.0); Immature Granulocytes % 0.3 %; Immature Granulocytes Absolute 0.02 #; Lymphocytes # 2.7 10*3/uL (1.4-4.0); Lymphocytes % 36.6 % (21.3-54.2); Mean Corpuscular HGB Conc 32.3 GM/DL (32-36); Mean Corpuscular Volume 84.5 FL (87-102); Mean Platelet Volume 9.5 FL (9.6-12.0); Monocytes % 10.2 % (1.7-12.7); Neutrophils % 50.5 % (38.7-73.9); Platelet Count 229 T/CUMM (130-400); Red Blood Count 3.74 MC/CUMM (3.8-5.5); Red Cell Distribution Width 22.4 % (9.3-17.3); White Blood Count 7.5 T/CUMM (4-12)
[2020-12-18 07:19] LABS: Calcium 8.9 MG/DL (8.5-10.1); Potassium 3.9 MMOL/L (3.5-5.1)
[2020-12-18] MEDS ORDERED: PANTOPRAZOLE 40 MG TABLET PO SCH (09:00)
[2020-12-18] MEDS: TAMSULOSIN 0.4 MG CAPSULE PO SCH (10:07)
[2020-12-18] MEDS: GABAPENTIN 300 MG CAPSULE PO SCH ×2 (10:07→14:42)
[2020-12-18] MEDS: LORazepam 1 MG TABLET PO SCH (10:07)
[2020-12-18] MEDS: MORPHINE ER 15 MG TABLET PO SCH (10:07)
[2020-12-18] MEDS: CLOPIDOGREL 75 MG TABLET PO SCH (10:08)
[2020-12-18] MEDS: ASPIRIN EC 81 MG TABLET PO SCH (10:08)
[2020-12-18] MEDS: CIPROFLOXACIN INJ 400 MG/200 ML PREMIX IV SCH (12:29)
[2020-12-18] MEDS: METOCLOPRAMIDE 10 MG/2 ML VIAL IV SCH (18:05)
[2020-12-19] MEDS: MORPHINE 2 MG/1 ML SYRINGE IV PRN ×2 (00:27→12:44)
[2020-12-19] MEDS: metroNIDAZOLE INJ 500 MG/100 ML PREMIX IV SCH ×4 (00:27→23:22)
[2020-12-19] MEDS: PANTOPRAZOLE 40 MG VIAL IV SCH ×3 (00:28→21:03)
[2020-12-19] MEDS: HEPARIN 5,000 UNIT/1 ML VIAL SUBCUT SCH ×3 (00:28→23:24)
[2020-12-19] MEDS: METOCLOPRAMIDE 10 MG/2 ML VIAL IV SCH ×5 (00:37→23:27)
[2020-12-19] MEDS: LORazepam 1 MG TABLET PO SCH ×3 (00:54→21:10)
[2020-12-19] MEDS: MORPHINE ER 15 MG TABLET PO SCH ×3 (00:54→21:03)
[2020-12-19] MEDS: INSULIN NPH/REGULAR 70/30 100 UNIT/ML SUBCUT SCH ×3 (00:54→21:03)
[2020-12-19] MEDS: SIMVASTATIN 10 MG TABLET PO SCH ×2 (00:55→21:02)
[2020-12-19] MEDS: GABAPENTIN 300 MG CAPSULE PO SCH ×4 (00:55→21:03)
[2020-12-19] MEDS: INSULIN REGULAR 100 UNIT/ML SUBCUT SCH ×5 (04:56→23:39)
[2020-12-19] MEDS: SODIUM CHLORIDE 0.9% 1,000 ML IV SCH ×4 (05:15→19:11)
[2020-12-19] MEDS: CIPROFLOXACIN INJ 400 MG/200 ML PREMIX IV SCH (05:16)
[2020-12-19] MEDS: TAMSULOSIN 0.4 MG CAPSULE PO SCH (09:09)
[2020-12-19] MEDS: ASPIRIN EC 81 MG TABLET PO SCH (09:09)
[2020-12-19] MEDS: CLOPIDOGREL 75 MG TABLET PO SCH (09:09)
[2020-12-20] MEDS: CIPROFLOXACIN INJ 400 MG/200 ML PREMIX IV SCH ×2 (01:03→17:06)
[2020-12-20] MEDS: SODIUM CHLORIDE 0.9% 1,000 ML IV SCH ×4 (01:06→16:00)
[2020-12-20] MEDS: METOCLOPRAMIDE 10 MG/2 ML VIAL IV SCH ×4 (05:26→18:56)
[2020-12-20 05:38] LABS: Alanine Aminotransferase 13 U/L (13-56); Albumin 2.6 G/DL (3.4-5.0); Alkaline Phosphatase 79 U/L (45-117); Aspartate Amino Transferase 15 U/L (0-37); Bilirubin,Total < 0.39 MG/DL (0.20-1.00); Blood Urea Nitrogen 7 MG/DL (7-18); Calcium 8.5 MG/DL (8.5-10.1); Carbon Dioxide 29 MMOL/L (21-32); Estimated Glom Filtration Rate 110 ML/MIN; Glucose 132 MG/DL (74-106); Osmolality,Calculated 287.7 MOS/KG (273-304); Potassium 3.2 MMOL/L (3.5-5.1); Sodium 145 MMOL/L (136-145); Total Protein 5.5 G/DL (6.4-8.2)
[2020-12-20] MEDS: INSULIN REGULAR 100 UNIT/ML SUBCUT SCH ×4 (05:39→23:26)
[2020-12-20 06:41] LABS: Basophils % 0.4 % (0.0-0.8); Eosinophils # 0.2 10*3/uL (0.0-0.87); Eosinophils % 2.2 % (0.00-10.9); Hemoglobin 10.3 GM/DL (12.0-16.0); Immature Granulocytes % 0.4 %; Immature Granulocytes Absolute 0.03 #; Lymphocytes # 4.1 10*3/uL (1.4-4.0); Lymphocytes % 52.2 % (21.3-54.2); Mean Corpuscular HGB Conc 32.2 GM/DL (32-36); Mean Corpuscular Volume 84.7 FL (87-102); Mean Platelet Volume 9.7 FL (9.6-12.0); Monocytes % 10.9 % (1.7-12.7); Neutrophils % 33.9 % (38.7-73.9); Platelet Count 225 T/CUMM (130-400); Red Blood Count 3.78 MC/CUMM (3.8-5.5); Red Cell Distribution Width 21.9 % (9.3-17.3); White Blood Count 7.8 T/CUMM (4-12)
[2020-12-20 06:45] LABS: Eosinophils 2 % (0-10); Hypochromasia Slight; Lymphocytes 60 % (20-55); Microcytosis Slight; Platelet Estimate Normal; Segmented Neutrophils 31 % (50-85)
[2020-12-20 06:46] LABS: Total Cells Counted 100
[2020-12-20] MEDS: metroNIDAZOLE INJ 500 MG/100 ML PREMIX IV SCH ×3 (07:59→23:19)
[2020-12-20] MEDS ORDERED: POTASSIUM BICARB EFFERVESCENT 20 MEQ TAB.EFF PO SCH (09:00)
[2020-12-20] MEDS: LORazepam 1 MG TABLET PO SCH ×2 (09:26→20:35)
[2020-12-20] MEDS: INSULIN NPH/REGULAR 70/30 100 UNIT/ML SUBCUT SCH ×2 (09:26→20:36)
[2020-12-20] MEDS: ASPIRIN EC 81 MG TABLET PO SCH (09:27)
[2020-12-20] MEDS: CLOPIDOGREL 75 MG TABLET PO SCH (09:27)
[2020-12-20] MEDS: GABAPENTIN 300 MG CAPSULE PO SCH ×3 (09:27→20:35)
[2020-12-20] MEDS: TAMSULOSIN 0.4 MG CAPSULE PO SCH (09:27)
[2020-12-20] MEDS: MORPHINE ER 15 MG TABLET PO SCH ×2 (09:28→20:36)
[2020-12-20] MEDS: HEPARIN 5,000 UNIT/1 ML VIAL SUBCUT SCH ×2 (12:00→23:19)
[2020-12-20] MEDS: PANTOPRAZOLE 40 MG VIAL IV SCH ×2 (14:07→20:36)
[2020-12-20] MEDS: SIMVASTATIN 10 MG TABLET PO SCH (20:35)
[2020-12-21] MEDS: METOCLOPRAMIDE 10 MG/2 ML VIAL IV SCH ×2 (01:38→06:26)
[2020-12-21 04:11] LABS: Calcium 8.5 MG/DL (8.5-10.1); Potassium 3.1 MMOL/L (3.5-5.1)
[2020-12-21] MEDS: INSULIN REGULAR 100 UNIT/ML SUBCUT SCH ×4 (06:11→21:25)
[2020-12-21] MEDS: SODIUM CHLORIDE 0.9% 1,000 ML IV SCH ×2 (06:25→19:10)
[2020-12-21] MEDS: ASPIRIN EC 81 MG TABLET PO SCH (09:13)
[2020-12-21] MEDS: GABAPENTIN 300 MG CAPSULE PO SCH ×3 (09:13→21:24)
[2020-12-21] MEDS: INSULIN NPH/REGULAR 70/30 100 UNIT/ML SUBCUT SCH ×2 (09:14→21:25)
[2020-12-21] MEDS: MORPHINE ER 15 MG TABLET PO SCH ×2 (09:14→21:24)
[2020-12-21] MEDS: LORazepam 1 MG TABLET PO SCH ×2 (09:14→21:24)
[2020-12-21] MEDS: TAMSULOSIN 0.4 MG CAPSULE PO SCH (09:14)
[2020-12-21] MEDS: CLOPIDOGREL 75 MG TABLET PO SCH (09:14)
[2020-12-21] MEDS: PANTOPRAZOLE 40 MG VIAL IV SCH ×2 (09:14→21:29)
[2020-12-21] MEDS: metroNIDAZOLE INJ 500 MG/100 ML PREMIX IV SCH (09:19)
[2020-12-21] MEDS: CIPROFLOXACIN 500 MG TABLET PO SCH (10:28)
[2020-12-21] MEDS: HEPARIN 5,000 UNIT/1 ML VIAL SUBCUT SCH ×2 (10:53→23:40)
[2020-12-21] MEDS: METOCLOPRAMIDE 10 MG/10 ML UDCUP PO SCH ×3 (10:53→21:24)
[2020-12-21] MEDS: POTASSIUM CHLORIDE 20 MEQ TABLET PO PRN ×4 (13:14→18:38)
[2020-12-21] MEDS: metroNIDAZOLE 500 MG TABLET PO SCH ×2 (13:14→21:24)
[2020-12-21] MEDS: SIMVASTATIN 10 MG TABLET PO SCH (21:24)
[2020-12-22] MEDS: CIPROFLOXACIN 500 MG TABLET PO SCH (03:30)
[2020-12-22] MEDS: metroNIDAZOLE 500 MG TABLET PO SCH ×2 (05:39→15:24)
[2020-12-22] MEDS: MORPHINE ER 15 MG TABLET PO SCH (09:28)
[2020-12-22] MEDS: GABAPENTIN 300 MG CAPSULE PO SCH ×2 (09:28→15:24)
[2020-12-22] MEDS: ASPIRIN EC 81 MG TABLET PO SCH (09:28)
[2020-12-22] MEDS: TAMSULOSIN 0.4 MG CAPSULE PO SCH (09:29)
[2020-12-22] MEDS: CLOPIDOGREL 75 MG TABLET PO SCH (09:29)
[2020-12-22] MEDS: PANTOPRAZOLE 40 MG VIAL IV SCH (09:29)
[2020-12-22] MEDS: METOCLOPRAMIDE 10 MG/10 ML UDCUP PO SCH ×2 (09:29→12:15)
[2020-12-22] MEDS: LORazepam 1 MG TABLET PO SCH (09:29)
[2020-12-22] MEDS: INSULIN NPH/REGULAR 70/30 100 UNIT/ML SUBCUT SCH (09:30)
[2020-12-22] MEDS: INSULIN REGULAR 100 UNIT/ML SUBCUT SCH ×2 (09:30→12:15)
[2020-12-22] MEDS: HEPARIN 5,000 UNIT/1 ML VIAL SUBCUT SCH (12:15)
[2020-12-22 12:58] VITALS: BP 158/68
== END 2020-12-22 15:57 | disposition home or self-care (01) | DRG 977 ==
LOC: N.ED 19:04 → N.EDINP 23:21 → N.TELEN 12-17 02:47
PROVIDERS: ADMIT Internal Medicine; ATTEND Internal Medicine

== ENCOUNTER 2021-12-03 12:10 | Inpatient (IN) ==
[2021-12-03] MEDS ORDERED: ONDANSETRON 4 MG/2 ML VIAL IV STA (13:00)
[2021-12-03] MEDS ORDERED: SODIUM CHLORIDE 0.9% 1,000 ML IV STA (13:00)
[2021-12-03 13:12] LABS: Basophils % 0.3 % (0.0-0.8); Eosinophils % 0.2 % (0.00-10.9); Hematocrit 47.7 VOL% (35.7-47.0); Immature Granulocytes % 0.7 %; Immature Granulocytes Absolute 0.08 #; Lymphocytes # 2.1 10*3/uL (1.4-4.0); Lymphocytes % 17.3 % (21.3-54.2); Mean Corpuscular HGB Conc 33.5 GM/DL (32-36); Mean Corpuscular Volume 87.4 FL (87-102); Monocytes # 0.8 10*3/uL (0.11-0.8); Monocytes % 6.4 % (1.7-12.7); Neutrophils % 75.1 % (38.7-73.9); Platelet Count 390 T/CUMM (130-400); Red Blood Count 5.46 MC/CUMM (3.8-5.5); Red Cell Distribution Width 15.2 % (9.3-17.3); White Blood Count 12.3 T/CUMM (4-12)
[2021-12-03 13:30] LABS: Albumin 4.4 G/DL (3.4-5.0); Bilirubin,Total 0.4 MG/DL (0.20-1.00); Calcium 10.8 MG/DL (8.5-10.1); Osmolality,Calculated 289.8 MOS/KG (273-304); Potassium 3.1 MMOL/L (3.5-5.1); Total Protein 8.9 G/DL (6.4-8.2)
[2021-12-03] MEDS ORDERED: HYDROmorphone 1 MG/1 ML SYRINGE IV STA (14:48)
[2021-12-03] MEDS ORDERED: PROMETHAZINE 25 MG/1 ML VIAL IM PRN (14:58)
[2021-12-03] MEDS ORDERED: hydrALAZINE 20 MG/1 ML VIAL IV PRN (14:58)
[2021-12-03] MEDS ORDERED: ONDANSETRON 4 MG/2 ML VIAL IV PRN (14:58)
[2021-12-03] MEDS ORDERED: DEXTROSE 10% 250 ML BAG IV PRN (14:58)
[2021-12-03] MEDS ORDERED: ACETAMINOPHEN 325 MG TABLET PO PRN (14:58)
[2021-12-03] MEDS ORDERED: GLUCAGON 1 MG VIAL IM PRN (14:58)
[2021-12-03] MEDS ORDERED: POTASSIUM CHLORIDE INJ 20 MEQ in SODIUM CHLORIDE 0.45% 1,000 ML IV SCH (15:00)
[2021-12-03 15:03] LABS: Bacteria,Urine Few /HPF (Few); Bilirubin,Urine Large mg/dL (Negative); Blood, Urine Moderate mg/dL (Negative); Glucose,Urine (UA) 100 mg/dL (Negative); Ketones,Urine 15 mg/dL (Negative); Mucus,Urine Moderate /LPF (Occasional); Nitrite,Urine Negative (Negative); Protein,Urine >=300 mg/dL (Negative); RBC,Urine 4 /HPF (0-4); Squamous Epithelial Cell,Urine Occasional /HPF (0-10); Urine Appearance Slightly Cloudy (Clear); Urine Color Brown (Yellow); Urine Specific Gravity >= 1.030 (1.001-1.035); Urine Urobilinogen 0.2 eU/dL (<2.0)
[2021-12-03] MEDS ORDERED: MAGNESIUM SULF RIDER 4 GM/100 ML PREMIX IV PRN (15:03)
[2021-12-03] MEDS ORDERED: POTASSIUM CHLORIDE RIDER 10 MEQ/100 ML PREMIX IV PRN (15:03)
[2021-12-03] MEDS ORDERED: MAGNESIUM SULF RIDER 2 GM/50 ML PREMIX IV PRN (15:03)
[2021-12-03] MEDS ORDERED: MORPHINE 2 MG/1 ML SYRINGE IV PRN (15:06)
[2021-12-03] MEDS ORDERED: CIPROFLOXACIN INJ 400 MG/200 ML PREMIX IV SCH (15:30)
[2021-12-03] MEDS: INSULIN REGULAR 100 UNIT/ML SUBCUT SCH ×2 (17:42→22:05)
[2021-12-03] MEDS: metroNIDAZOLE INJ 500 MG/100 ML PREMIX IV SCH ×2 (18:10→22:05)
[2021-12-03] MEDS: CIPROFLOXACIN INJ 400 MG/200 ML PREMIX IV SCH (18:10)
[2021-12-03] MEDS: AMITRIPTYLINE 25 MG TABLET PO SCH (20:46)
[2021-12-03] MEDS: cilostazoL 100 MG TABLET PO SCH (20:46)
[2021-12-03] MEDS: MORPHINE ER 15 MG TABLET PO SCH (20:46)
[2021-12-03] MEDS: HYDROmorphone 1 MG/1 ML SYRINGE IV PRN (22:03)
[2021-12-03] MEDS: SODIUM CHLOR 0.45% KCL 20 MEQ 20 MEQ/1,000 ML BAG IV SCH (23:07)
[2021-12-04] MEDS: HYDROmorphone 1 MG/1 ML SYRINGE IV PRN ×3 (02:00→13:11)
[2021-12-04] MEDS: metroNIDAZOLE INJ 500 MG/100 ML PREMIX IV SCH (04:24)
[2021-12-04 06:45] LABS: Basophils # 0.1 10*3/uL (0.0-0.2); Basophils % 0.4 % (0.0-0.8); Eosinophils # 0.3 10*3/uL (0.0-0.87); Eosinophils % 2.6 % (0.00-10.9); Hematocrit 41.7 VOL% (35.7-47.0); Immature Granulocytes % 0.3 %; Immature Granulocytes Absolute 0.04 #; Lymphocytes # 4.8 10*3/uL (1.4-4.0); Lymphocytes % 38.1 % (21.3-54.2); Mean Corpuscular HGB Conc 32.1 GM/DL (32-36); Monocytes # 1.6 10*3/uL (0.11-0.8); Monocytes % 12.3 % (1.7-12.7); Neutrophils % 46.3 % (38.7-73.9); Platelet Count 315 T/CUMM (130-400); Red Blood Count 4.58 MC/CUMM (3.8-5.5); Red Cell Distribution Width 15.3 % (9.3-17.3); White Blood Count 12.7 T/CUMM (4-12)
[2021-12-04 06:59] LABS: Hemoglobin 13.4 GM/DL (12.0-16.0)
[2021-12-04 07:14] LABS: Albumin 3.1 G/DL (3.4-5.0); Bilirubin,Total 0.4 MG/DL (0.20-1.00); Calcium 9.3 MG/DL (8.5-10.1); Osmolality,Calculated 284.3 MOS/KG (273-304); Potassium 3.2 MMOL/L (3.5-5.1); Risk Ratio 4.17; Thyroid Stimulating Hormone 2.62 uIU/ml (0.358-3.74); Total Protein 6.6 G/DL (6.4-8.2); VLDL Cholesterol 40.8 MG/DL
[2021-12-04] MEDS: CLOPIDOGREL 75 MG TABLET PO SCH (08:21)
[2021-12-04] MEDS: MORPHINE ER 15 MG TABLET PO SCH ×2 (08:21→20:13)
[2021-12-04] MEDS: ASPIRIN EC 81 MG TABLET PO SCH (08:21)
[2021-12-04] MEDS: CYANOCOBALAMIN 500 MCG TABLET PO SCH (08:22)
[2021-12-04] MEDS: cilostazoL 100 MG TABLET PO SCH ×2 (08:22→20:13)
[2021-12-04] MEDS: PANTOPRAZOLE 40 MG VIAL IV SCH (08:23)
[2021-12-04] MEDS: INSULIN REGULAR 100 UNIT/ML SUBCUT SCH ×4 (08:35→20:22)
[2021-12-04] MEDS: POTASSIUM CHLORIDE 20 MEQ TABLET PO SCH (11:25)
[2021-12-04] MEDS: DOLUTEGRAVIR LAMIVUDINE PO SCH (11:26)
[2021-12-04] MEDS: SIMVASTATIN 10 MG TABLET PO SCH (11:26)
[2021-12-04] MEDS: SODIUM CHLOR 0.45% KCL 20 MEQ 20 MEQ/1,000 ML BAG IV SCH (13:10)
[2021-12-04] MEDS: CEFEPIME 1,000 MG in SODIUM CHLORIDE 0.9% 100 ML IV SCH ×2 (13:12→20:13)
[2021-12-04] MEDS: CIPROFLOXACIN INJ 400 MG/200 ML PREMIX IV SCH (13:36)
[2021-12-04] MEDS ORDERED: metroNIDAZOLE INJ 500 MG/100 ML PREMIX IV SCH (17:00)
[2021-12-04] MEDS: AMITRIPTYLINE 25 MG TABLET PO SCH (20:13)
[2021-12-05] MEDS: SODIUM CHLOR 0.45% KCL 20 MEQ 20 MEQ/1,000 ML BAG IV SCH ×4 (03:54→23:24)
[2021-12-05 04:42] LABS: Basophils % 0.5 % (0.0-0.8); Eosinophils # 0.3 10*3/uL (0.0-0.87); Eosinophils % 3.6 % (0.00-10.9); Hematocrit 34.5 VOL% (35.7-47.0); Hemoglobin 11.3 GM/DL (12.0-16.0); Immature Granulocytes % 0.3 %; Immature Granulocytes Absolute 0.02 #; Lymphocytes # 3.4 10*3/uL (1.4-4.0); Mean Corpuscular HGB Conc 32.8 GM/DL (32-36); Mean Corpuscular Volume 90.8 FL (87-102); Mean Platelet Volume 9.8 FL (9.6-12.0); Monocytes # 0.9 10*3/uL (0.11-0.8); Monocytes % 11.2 % (1.7-12.7); Neutrophils % 41.4 % (38.7-73.9); Platelet Count 250 T/CUMM (130-400); White Blood Count 7.8 T/CUMM (4-12)
[2021-12-05 05:15] LABS: Alanine Aminotransferase 17 U/L (13-56); Alkaline Phosphatase 112 U/L (45-117); Aspartate Amino Transferase 18 U/L (0-37); Bilirubin,Total < 0.39 MG/DL (0.20-1.00); Blood Urea Nitrogen 21 MG/DL (7-18); Calcium 8.9 MG/DL (8.5-10.1); Carbon Dioxide 24 MMOL/L (21-32); Chloride 106 MMOL/L (98-107); Glucose 144 MG/DL (74-106); Osmolality,Calculated 280.7 MOS/KG (273-304); Potassium 3.7 MMOL/L (3.5-5.1); Sodium 138 MMOL/L (136-145); Total Protein 5.9 G/DL (6.4-8.2)
[2021-12-05] MEDS: CYANOCOBALAMIN 500 MCG TABLET PO SCH (08:45)
[2021-12-05] MEDS: POTASSIUM CHLORIDE 20 MEQ TABLET PO SCH (08:45)
[2021-12-05] MEDS: SIMVASTATIN 10 MG TABLET PO SCH (08:45)
[2021-12-05] MEDS: MORPHINE ER 15 MG TABLET PO SCH ×2 (08:45→20:24)
[2021-12-05] MEDS: PANTOPRAZOLE 40 MG VIAL IV SCH (08:45)
[2021-12-05] MEDS: CLOPIDOGREL 75 MG TABLET PO SCH (08:45)
[2021-12-05] MEDS: cilostazoL 100 MG TABLET PO SCH ×2 (08:45→20:24)
[2021-12-05] MEDS: ASPIRIN EC 81 MG TABLET PO SCH (08:45)
[2021-12-05] MEDS: INSULIN REGULAR 100 UNIT/ML SUBCUT SCH ×4 (08:46→21:22)
[2021-12-05] MEDS: DOLUTEGRAVIR LAMIVUDINE PO SCH (08:46)
[2021-12-05] MEDS: CEFEPIME 1,000 MG in SODIUM CHLORIDE 0.9% 100 ML IV SCH ×2 (08:46→20:25)
[2021-12-05] MEDS: AMITRIPTYLINE 25 MG TABLET PO SCH (20:24)
[2021-12-06 04:10] LABS: Basophils % 0.5 % (0.0-0.8); Eosinophils # 0.2 10*3/uL (0.0-0.87); Eosinophils % 3.8 % (0.00-10.9); Hematocrit 31.2 VOL% (35.7-47.0); Hemoglobin 10.3 GM/DL (12.0-16.0); Immature Granulocytes % 0.2 %; Immature Granulocytes Absolute 0.01 #; Lymphocytes # 3.3 10*3/uL (1.4-4.0); Lymphocytes % 53.5 % (21.3-54.2); Mean Corpuscular Volume 90.7 FL (87-102); Mean Platelet Volume 9.7 FL (9.6-12.0); Monocytes # 0.7 10*3/uL (0.11-0.8); Monocytes % 11.7 % (1.7-12.7); Neutrophils % 30.3 % (38.7-73.9); Platelet Count 214 T/CUMM (130-400); Red Blood Count 3.44 MC/CUMM (3.8-5.5); Red Cell Distribution Width 14.9 % (9.3-17.3); White Blood Count 6.1 T/CUMM (4-12)
[2021-12-06 04:28] LABS: Calcium 8.5 MG/DL (8.5-10.1); Osmolality,Calculated 287.7 MOS/KG (273-304); Potassium 4.6 MMOL/L (3.5-5.1)
[2021-12-06 04:55] LABS: Eosinophils 4 % (0-10); Lymphocytes 55 % (20-55); Platelet Estimate Adequate; Total Cells Counted 100
[2021-12-06] MEDS: SODIUM CHLOR 0.45% KCL 20 MEQ 20 MEQ/1,000 ML BAG IV SCH ×5 (06:14→22:57)
[2021-12-06] MEDS: INSULIN REGULAR 100 UNIT/ML SUBCUT SCH ×4 (08:07→21:00)
[2021-12-06] MEDS: MORPHINE ER 15 MG TABLET PO SCH ×2 (09:02→20:59)
[2021-12-06] MEDS: ASPIRIN EC 81 MG TABLET PO SCH (09:02)
[2021-12-06] MEDS: CYANOCOBALAMIN 500 MCG TABLET PO SCH (09:02)
[2021-12-06] MEDS: cilostazoL 100 MG TABLET PO SCH ×2 (09:03→21:00)
[2021-12-06] MEDS: SIMVASTATIN 10 MG TABLET PO SCH (09:03)
[2021-12-06] MEDS: PANTOPRAZOLE 40 MG VIAL IV SCH (09:03)
[2021-12-06] MEDS: CLOPIDOGREL 75 MG TABLET PO SCH (09:03)
[2021-12-06] MEDS: POTASSIUM CHLORIDE 20 MEQ TABLET PO SCH (09:03)
[2021-12-06] MEDS: CEFEPIME 1,000 MG in SODIUM CHLORIDE 0.9% 100 ML IV SCH ×2 (09:05→21:06)
[2021-12-06] MEDS: DOLUTEGRAVIR LAMIVUDINE PO SCH (09:15)
[2021-12-06] MEDS ORDERED: MAGNESIUM SULF RIDER 2 GM/50 ML PREMIX IV ONE (11:00)
[2021-12-06 11:47] LABS: Cryptosporidium Antigen Stool Negative (Negative)
[2021-12-06] MEDS: METOCLOPRAMIDE 10 MG/2 ML VIAL IV SCH ×2 (14:59→21:00)
[2021-12-06] MEDS: AMITRIPTYLINE 25 MG TABLET PO SCH (21:00)
[2021-12-06] MEDS ORDERED: [UNRECOGNIZED DRUG - OTHER] PO SCH (21:00)
[2021-12-07] MEDS: METOCLOPRAMIDE 10 MG/2 ML VIAL IV SCH ×4 (01:50→19:51)
[2021-12-07 05:03] LABS: Basophils % 0.5 % (0.0-0.8); Eosinophils # 0.2 10*3/uL (0.0-0.87); Eosinophils % 3.5 % (0.00-10.9); Hematocrit 32.3 VOL% (35.7-47.0); Hemoglobin 10.6 GM/DL (12.0-16.0); Immature Granulocytes % 0.2 %; Immature Granulocytes Absolute 0.01 #; Lymphocytes # 2.9 10*3/uL (1.4-4.0); Lymphocytes % 50.2 % (21.3-54.2); Mean Corpuscular HGB Conc 32.8 GM/DL (32-36); Mean Corpuscular Volume 90.7 FL (87-102); Mean Platelet Volume 10.1 FL (9.6-12.0); Monocytes # 0.6 10*3/uL (0.11-0.8); Monocytes % 11.1 % (1.7-12.7); Neutrophils % 34.5 % (38.7-73.9); Platelet Count 243 T/CUMM (130-400); Red Blood Count 3.56 MC/CUMM (3.8-5.5); Red Cell Distribution Width 14.7 % (9.3-17.3); White Blood Count 5.8 T/CUMM (4-12)
[2021-12-07 05:20] LABS: Calcium 8.9 MG/DL (8.5-10.1); Osmolality,Calculated 283.8 MOS/KG (273-304); Potassium 3.7 MMOL/L (3.5-5.1)
[2021-12-07 05:56] LABS: Eosinophils 5 % (0-10); Lymphocytes 54 % (20-55); Total Cells Counted 100
[2021-12-07 05:58] LABS: Hypochromia Slight; Microcytosis Slight; Ovalocytes Slight; Platelet Estimate Normal
[2021-12-07] MEDS: INSULIN REGULAR 100 UNIT/ML SUBCUT SCH ×4 (10:07→20:02)
[2021-12-07] MEDS: CEFEPIME 1,000 MG in SODIUM CHLORIDE 0.9% 100 ML IV SCH ×2 (10:09→20:00)
[2021-12-07] MEDS: PANTOPRAZOLE 40 MG VIAL IV SCH (10:10)
[2021-12-07] MEDS: POTASSIUM CHLORIDE 20 MEQ TABLET PO SCH (10:11)
[2021-12-07] MEDS: ASPIRIN EC 81 MG TABLET PO SCH (10:11)
[2021-12-07] MEDS: CYANOCOBALAMIN 500 MCG TABLET PO SCH (10:11)
[2021-12-07] MEDS: SIMVASTATIN 10 MG TABLET PO SCH (10:11)
[2021-12-07] MEDS: MORPHINE ER 15 MG TABLET PO SCH ×2 (10:11→20:00)
[2021-12-07] MEDS: CLOPIDOGREL 75 MG TABLET PO SCH (10:13)
[2021-12-07] MEDS: cilostazoL 100 MG TABLET PO SCH ×2 (10:13→20:00)
[2021-12-07] MEDS: SODIUM CHLOR 0.45% KCL 20 MEQ 20 MEQ/1,000 ML BAG IV SCH (14:16)
[2021-12-07] MEDS: AMITRIPTYLINE 25 MG TABLET PO SCH (20:00)
[2021-12-07] MEDS: DOCUSATE SODIUM 100 MG CAPSULE PO SCH (20:01)
[2021-12-07] MEDS: DOLUTEGRAVIR LAMIVUDINE PO SCH (20:01)
[2021-12-07] MEDS: POLYETHYLENE GLYCOL POWDER 17 GM PACK PO SCH (20:02)
[2021-12-08] MEDS: METOCLOPRAMIDE 10 MG/2 ML VIAL IV SCH (02:01)
[2021-12-08] MEDS: SODIUM CHLOR 0.45% KCL 20 MEQ 20 MEQ/1,000 ML BAG IV SCH ×2 (02:04→19:12)
[2021-12-08 05:23] LABS: Basophils % 0.5 % (0.0-0.8); Eosinophils # 0.2 10*3/uL (0.0-0.87); Eosinophils % 3.1 % (0.00-10.9); Hematocrit 31.7 VOL% (35.7-47.0); Hemoglobin 10.3 GM/DL (12.0-16.0); Immature Granulocytes % 0.3 %; Immature Granulocytes Absolute 0.02 #; Lymphocytes # 3.2 10*3/uL (1.4-4.0); Lymphocytes % 49.9 % (21.3-54.2); Mean Corpuscular HGB Conc 32.5 GM/DL (32-36); Mean Corpuscular Volume 91.4 FL (87-102); Mean Platelet Volume 10.3 FL (9.6-12.0); Monocytes # 0.7 10*3/uL (0.11-0.8); Monocytes % 10.1 % (1.7-12.7); Neutrophils % 36.1 % (38.7-73.9); Platelet Count 239 T/CUMM (130-400); Red Blood Count 3.47 MC/CUMM (3.8-5.5); Red Cell Distribution Width 14.7 % (9.3-17.3); White Blood Count 6.5 T/CUMM (4-12)
[2021-12-08 05:48] LABS: Calcium 8.7 MG/DL (8.5-10.1); Potassium 3.9 MMOL/L (3.5-5.1)
[2021-12-08 06:33] LABS: Atypical Lymphocytes Few; Eosinophils 3 % (0-10); Lymphocytes 56 % (20-55); Total Cells Counted 100
[2021-12-08 06:34] LABS: Microcytosis Slight; Platelet Estimate Normal
[2021-12-08] MEDS ORDERED: [UNRECOGNIZED DRUG - OTHER] PO SCH (09:00)
[2021-12-08] MEDS: ASPIRIN EC 81 MG TABLET PO SCH (10:29)
[2021-12-08] MEDS: CLOPIDOGREL 75 MG TABLET PO SCH (10:29)
[2021-12-08] MEDS: cilostazoL 100 MG TABLET PO SCH ×2 (10:31→20:49)
[2021-12-08] MEDS: CEFEPIME 1,000 MG in SODIUM CHLORIDE 0.9% 100 ML IV SCH ×2 (10:34→20:47)
[2021-12-08] MEDS: MORPHINE ER 15 MG TABLET PO SCH ×2 (10:48→20:49)
[2021-12-08] MEDS: CYANOCOBALAMIN 500 MCG TABLET PO SCH (10:50)
[2021-12-08] MEDS: INSULIN REGULAR 100 UNIT/ML SUBCUT SCH ×4 (18:16→20:58)
[2021-12-08] MEDS: DOCUSATE SODIUM 100 MG CAPSULE PO SCH ×2 (19:03→20:50)
[2021-12-08] MEDS: POLYETHYLENE GLYCOL POWDER 17 GM PACK PO SCH ×2 (19:06→20:49)
[2021-12-08] MEDS: PANTOPRAZOLE 40 MG VIAL IV SCH (19:06)
[2021-12-08] MEDS: POTASSIUM CHLORIDE 20 MEQ TABLET PO SCH (19:06)
[2021-12-08] MEDS: SIMVASTATIN 10 MG TABLET PO SCH (19:07)
[2021-12-08] MEDS: METOCLOPRAMIDE 10 MG/10 ML UDCUP PO SCH (20:48)
[2021-12-08] MEDS: DOLUTEGRAVIR LAMIVUDINE PO SCH (20:51)
[2021-12-08] MEDS: MAGNESIUM CHLORIDE 64 MG TABLET PO SCH (20:51)
[2021-12-08] MEDS: AMITRIPTYLINE 25 MG TABLET PO SCH (20:51)
[2021-12-08] MEDS: [UNRECOGNIZED DRUG - OTHER] PO SCH (20:52)
[2021-12-09] MEDS: SODIUM CHLOR 0.45% KCL 20 MEQ 20 MEQ/1,000 ML BAG IV SCH (04:54)
[2021-12-09 05:32] LABS: Basophils % 0.5 % (0.0-0.8); Eosinophils # 0.2 10*3/uL (0.0-0.87); Eosinophils % 3.3 % (0.00-10.9); Hematocrit 34.4 VOL% (35.7-47.0); Hemoglobin 11.3 GM/DL (12.0-16.0); Immature Granulocytes % 0.3 %; Immature Granulocytes Absolute 0.02 #; Lymphocytes # 3.2 10*3/uL (1.4-4.0); Lymphocytes % 48.2 % (21.3-54.2); Mean Corpuscular HGB Conc 32.8 GM/DL (32-36); Mean Corpuscular Volume 89.8 FL (87-102); Mean Platelet Volume 10.4 FL (9.6-12.0); Monocytes # 0.6 10*3/uL (0.11-0.8); Monocytes % 8.7 % (1.7-12.7); Platelet Count 255 T/CUMM (130-400); Red Blood Count 3.83 MC/CUMM (3.8-5.5); Red Cell Distribution Width 14.7 % (9.3-17.3); White Blood Count 6.6 T/CUMM (4-12)
[2021-12-09 05:47] LABS: Calcium 9.2 MG/DL (8.5-10.1); Osmolality,Calculated 278.4 MOS/KG (273-304); Potassium 3.9 MMOL/L (3.5-5.1)
[2021-12-09] MEDS ORDERED: MAGNESIUM SULF RIDER 2 GM/50 ML PREMIX IV ONE (07:49)
[2021-12-09] MEDS: INSULIN REGULAR 100 UNIT/ML SUBCUT SCH ×4 (08:32→20:49)
[2021-12-09] MEDS: METOCLOPRAMIDE 10 MG/2 ML VIAL IV SCH (08:33)
[2021-12-09] MEDS: METOCLOPRAMIDE 10 MG/10 ML UDCUP PO SCH ×4 (08:33→20:48)
[2021-12-09] MEDS: POTASSIUM CHLORIDE 20 MEQ TABLET PO SCH (08:56)
[2021-12-09] MEDS: POLYETHYLENE GLYCOL POWDER 17 GM PACK PO SCH ×2 (08:56→20:49)
[2021-12-09] MEDS: MAGNESIUM CHLORIDE 64 MG TABLET PO SCH ×2 (08:56→20:55)
[2021-12-09] MEDS: ASPIRIN EC 81 MG TABLET PO SCH (08:56)
[2021-12-09] MEDS: CLOPIDOGREL 75 MG TABLET PO SCH (08:56)
[2021-12-09] MEDS: CYANOCOBALAMIN 500 MCG TABLET PO SCH (08:56)
[2021-12-09] MEDS: PANTOPRAZOLE 40 MG VIAL IV SCH (08:57)
[2021-12-09] MEDS: cilostazoL 100 MG TABLET PO SCH ×2 (08:57→20:50)
[2021-12-09] MEDS: DOCUSATE SODIUM 100 MG CAPSULE PO SCH ×2 (08:57→20:47)
[2021-12-09] MEDS: MORPHINE ER 15 MG TABLET PO SCH ×2 (08:57→20:48)
[2021-12-09] MEDS: SIMVASTATIN 10 MG TABLET PO SCH (08:57)
[2021-12-09] MEDS: CEFEPIME 1,000 MG in SODIUM CHLORIDE 0.9% 100 ML IV SCH ×2 (12:10→20:52)
[2021-12-09] MEDS: lisinopriL 20 MG TABLET PO SCH (12:10)
[2021-12-09] MEDS ORDERED: diphenhydrAMINE CAP 25 MG CAPSULE PO PRN (13:04)
[2021-12-09] MEDS: LUBIPROSTONE 8 MCG CAPSULE PO SCH (20:47)
[2021-12-09] MEDS: AMITRIPTYLINE 25 MG TABLET PO SCH (20:47)
[2021-12-09] MEDS: DOLUTEGRAVIR LAMIVUDINE PO SCH (20:51)
[2021-12-09] MEDS: [UNRECOGNIZED DRUG - OTHER] PO SCH (20:55)
[2021-12-10] MEDS: SODIUM CHLOR 0.45% KCL 20 MEQ 20 MEQ/1,000 ML BAG IV SCH ×2 (00:09→09:28)
[2021-12-10 05:23] LABS: Basophils % 0.5 % (0.0-0.8); Eosinophils # 0.3 10*3/uL (0.0-0.87); Eosinophils % 3.6 % (0.00-10.9); Hematocrit 34.5 VOL% (35.7-47.0); Hemoglobin 11.3 GM/DL (12.0-16.0); Immature Granulocytes % 0.1 %; Immature Granulocytes Absolute 0.01 #; Lymphocytes # 3.9 10*3/uL (1.4-4.0); Lymphocytes % 48.3 % (21.3-54.2); Mean Corpuscular HGB Conc 32.8 GM/DL (32-36); Mean Corpuscular Volume 91.8 FL (87-102); Mean Platelet Volume 10.6 FL (9.6-12.0); Monocytes # 0.8 10*3/uL (0.11-0.8); Monocytes % 9.7 % (1.7-12.7); Neutrophils % 37.8 % (38.7-73.9); Platelet Count 256 T/CUMM (130-400); Red Blood Count 3.76 MC/CUMM (3.8-5.5); Red Cell Distribution Width 14.9 % (9.3-17.3)
[2021-12-10 05:44] LABS: Calcium 9.2 MG/DL (8.5-10.1); Osmolality,Calculated 277.4 MOS/KG (273-304); Potassium 3.9 MMOL/L (3.5-5.1)
[2021-12-10 05:48] LABS: Eosinophils 7 % (0-10); Lymphocytes 44 % (20-55); Platelet Estimate Adequate; Total Cells Counted 100
[2021-12-10] MEDS: INSULIN REGULAR 100 UNIT/ML SUBCUT SCH ×2 (07:44→11:53)
[2021-12-10] MEDS ORDERED: CEFUROXIME 500 MG TABLET PO SCH (09:00)
[2021-12-10] MEDS: CYANOCOBALAMIN 500 MCG TABLET PO SCH (09:26)
[2021-12-10] MEDS: MAGNESIUM CHLORIDE 64 MG TABLET PO SCH (09:26)
[2021-12-10] MEDS: METOCLOPRAMIDE 10 MG/10 ML UDCUP PO SCH ×2 (09:26→11:53)
[2021-12-10] MEDS: SIMVASTATIN 10 MG TABLET PO SCH (09:26)
[2021-12-10] MEDS: LUBIPROSTONE 8 MCG CAPSULE PO SCH (09:26)
[2021-12-10] MEDS: POTASSIUM CHLORIDE 20 MEQ TABLET PO SCH (09:26)
[2021-12-10] MEDS: CLOPIDOGREL 75 MG TABLET PO SCH (09:27)
[2021-12-10] MEDS: lisinopriL 20 MG TABLET PO SCH (09:27)
[2021-12-10] MEDS: cilostazoL 100 MG TABLET PO SCH (09:27)
[2021-12-10] MEDS: ASPIRIN EC 81 MG TABLET PO SCH (09:27)
[2021-12-10] MEDS: MORPHINE ER 15 MG TABLET PO SCH (09:27)
[2021-12-10] MEDS: POLYETHYLENE GLYCOL POWDER 17 GM PACK PO SCH (09:27)
[2021-12-10] MEDS: DOCUSATE SODIUM 100 MG CAPSULE PO SCH (09:27)
[2021-12-10] MEDS: PANTOPRAZOLE 40 MG VIAL IV SCH (09:36)
[2021-12-10 12:12] VITALS: BP 124/65
== END 2021-12-10 12:40 | disposition home or self-care (01) | DRG 392 ==
LOC: N.EDINP 12:10 → N.ED 12:10 → SUATTDRO 14:58 → N.5E 16:08
PROVIDERS: ADMIT Internal Medicine; ATTEND Hospitalist

== ENCOUNTER 2022-03-12 17:55 | Inpatient (IN) ==
[2022-03-12] MEDS ORDERED: HYDROmorphone 1 MG/1 ML SYRINGE IV STA ×2 (18:37→21:29)
[2022-03-12] MEDS ORDERED: PANTOPRAZOLE 40 MG VIAL IV STA (18:37)
[2022-03-12] MEDS ORDERED: ONDANSETRON 4 MG/2 ML VIAL IV STA (18:37)
[2022-03-12] MEDS ORDERED: SODIUM CHLORIDE 0.9% 500 ML IV STA (18:37)
[2022-03-12 18:52] LABS: Basophils % 0.4 % (0.0-0.8); Eosinophils % 0.3 % (0.00-10.9); Hematocrit 34.4 VOL% (35.7-47.0); Hemoglobin 11.1 GM/DL (12.0-16.0); Immature Granulocytes % 0.4 %; Immature Granulocytes Absolute 0.03 #; Lymphocytes # 1.5 10*3/uL (1.4-4.0); Lymphocytes % 20.5 % (21.3-54.2); Mean Corpuscular HGB Conc 32.3 GM/DL (32-36); Mean Corpuscular Volume 89.6 FL (87-102); Mean Platelet Volume 10.9 FL (9.6-12.0); Monocytes # 0.4 10*3/uL (0.11-0.8); Monocytes % 5.9 % (1.7-12.7); Neutrophils % 72.5 % (38.7-73.9); Platelet Count 258 T/CUMM (130-400); Red Blood Count 3.84 MC/CUMM (3.8-5.5); Red Cell Distribution Width 17.2 % (9.3-17.3); White Blood Count 7.5 T/CUMM (4-12)
[2022-03-12 18:57] LABS: Alanine Aminotransferase 18 U/L (13-56); Albumin 3.5 G/DL (3.4-5.0); Alkaline Phosphatase 113 U/L (45-117); Amylase 43 U/L (25-115); Aspartate Amino Transferase 14 U/L (0-37); Bilirubin,Total < 0.39 MG/DL (0.20-1.00); Blood Urea Nitrogen 10 MG/DL (7-18); Calcium 8.6 MG/DL (8.5-10.1); Carbon Dioxide 25 MMOL/L (21-32); Chloride 110 MMOL/L (98-107); Glucose 340 MG/DL (74-106); Osmolality,Calculated 294.1 MOS/KG (273-304); Potassium 3.9 MMOL/L (3.5-5.1); Sodium 142 MMOL/L (136-145); Total Protein 6.1 G/DL (6.4-8.2)
[2022-03-12] MEDS ORDERED: MAGNESIUM SULF RIDER 2 GM/50 ML PREMIX IV STA (19:07)
[2022-03-12 19:27] LABS: Glucose,Urine (UA) 500 mg/dL (Negative); Ketones,Urine Negative (Negative); Protein,Urine 100 mg/dL (Negative); Urine Appearance Clear (Clear); Urine Color Yellow (Yellow); Urine Specific Gravity >= 1.030 (1.001-1.035); Urine pH 5.5 (4.5-8.0)
[2022-03-12 19:28] LABS: Bilirubin,Urine Negative (Negative); Blood, Urine Small mg/dL (Negative); Nitrite,Urine Negative (Negative); Urine Urobilinogen 0.2 eU/dL (<2.0)
[2022-03-12 19:30] LABS: Mucus,Urine Occasional /LPF (Occasional); RBC,Urine 6 /HPF (0-4); Squamous Epithelial Cell,Urine Occasional /HPF (0-10)
[2022-03-13] MEDS ORDERED: GLUCAGON 1 MG VIAL IM PRN (00:13)
[2022-03-13] MEDS ORDERED: ONDANSETRON 4 MG/2 ML VIAL IV PRN (00:13)
[2022-03-13] MEDS ORDERED: DEXTROSE 10% 250 ML BAG IV PRN (00:29)
[2022-03-13] MEDS: MORPHINE ER 15 MG TABLET PO SCH ×3 (00:45→21:22)
[2022-03-13] MEDS: INSULIN REGULAR 100 UNIT/ML SUBCUT SCH ×4 (01:09→17:28)
[2022-03-13] MEDS: SODIUM CHLORIDE 0.9% 1,000 ML IV SCH ×3 (01:11→15:39)
[2022-03-13 04:15] LABS: Basophils % 0.4 % (0.0-0.8); Eosinophils # 0.2 10*3/uL (0.0-0.87); Eosinophils % 1.8 % (0.00-10.9); Hemoglobin 10.2 GM/DL (12.0-16.0); Immature Granulocytes % 0.4 %; Immature Granulocytes Absolute 0.03 #; Lymphocytes # 3.1 10*3/uL (1.4-4.0); Lymphocytes % 36.5 % (21.3-54.2); Mean Corpuscular HGB Conc 32.9 GM/DL (32-36); Mean Corpuscular Volume 89.6 FL (87-102); Mean Platelet Volume 10.3 FL (9.6-12.0); Monocytes # 0.9 10*3/uL (0.11-0.8); Monocytes % 10.1 % (1.7-12.7); Neutrophils % 50.8 % (38.7-73.9); Platelet Count 208 T/CUMM (130-400); Red Blood Count 3.46 MC/CUMM (3.8-5.5); Red Cell Distribution Width 17.1 % (9.3-17.3); White Blood Count 8.4 T/CUMM (4-12)
[2022-03-13 04:44] LABS: Alanine Aminotransferase 17 U/L (13-56); Albumin 3.1 G/DL (3.4-5.0); Alkaline Phosphatase 101 U/L (45-117); Aspartate Amino Transferase 14 U/L (0-37); Bilirubin,Total < 0.39 MG/DL (0.20-1.00); Blood Urea Nitrogen 13 MG/DL (7-18); Calcium 8.6 MG/DL (8.5-10.1); Carbon Dioxide 27 MMOL/L (21-32); Chloride 111 MMOL/L (98-107); Glucose 180 MG/DL (74-106); Potassium 3.9 MMOL/L (3.5-5.1); Sodium 143 MMOL/L (136-145); Total Protein 5.9 G/DL (6.4-8.2)
[2022-03-13] MEDS ORDERED: CLOPIDOGREL 75 MG TABLET PO SCH (09:00)
[2022-03-13] MEDS ORDERED: APIXABAN 5 MG TABLET PO SCH (09:00)
[2022-03-13] MEDS ORDERED: NON-FORMULARY MEDICATION (Omeprazole 20 mg Capsule,Delayed Release(Dr/Ec)) PO SCH (09:00)
[2022-03-13] MEDS ORDERED: PANTOPRAZOLE 40 MG VIAL IV SCH (09:00)
[2022-03-13] MEDS: MAGNESIUM CHLORIDE 64 MG TABLET PO SCH ×2 (09:35→21:25)
[2022-03-13] MEDS: POLYETHYLENE GLYCOL POWDER 17 GM PACK PO SCH ×3 (09:41→21:24)
[2022-03-13] MEDS: lisinopriL 20 MG TABLET PO SCH (09:49)
[2022-03-13] MEDS: POTASSIUM CHLORIDE 20 MEQ TABLET PO SCH (09:49)
[2022-03-13] MEDS: METOPROLOL SUCCINATE XL 25 MG TABLET PO SCH (09:49)
[2022-03-13] MEDS: ASPIRIN EC 81 MG TABLET PO SCH (09:49)
[2022-03-13] MEDS: METFORMIN PO SCH (10:02)
[2022-03-13] MEDS: LINAGLIPTIN PO SCH (10:02)
[2022-03-13] MEDS: EMPAGLIFLOZIN PO SCH (10:02)
[2022-03-13] MEDS: INSULIN NPH/REG 70/30 100 UNIT/ML SUBCUT SCH ×2 (11:31→17:28)
[2022-03-13] MEDS: METOCLOPRAMIDE 10 MG TABLET PO SCH ×3 (12:07→21:22)
[2022-03-13] MEDS: METOCLOPRAMIDE 10 MG/2 ML VIAL IV SCH (17:20)
[2022-03-13] MEDS: AMITRIPTYLINE 25 MG TABLET PO SCH (21:22)
[2022-03-13] MEDS: PANTOPRAZOLE 40 MG VIAL IV SCH (21:22)
[2022-03-13] MEDS: SIMVASTATIN 10 MG TABLET PO SCH (21:23)
[2022-03-14] MEDS: SODIUM CHLORIDE 0.9% 1,000 ML IV SCH ×3 (00:21→18:32)
[2022-03-14] MEDS: HYDROmorphone 1 MG/1 ML SYRINGE IV PRN ×2 (00:22→23:47)
[2022-03-14] MEDS: METOCLOPRAMIDE 10 MG/2 ML VIAL IV SCH ×4 (00:23→17:22)
[2022-03-14] MEDS: INSULIN REGULAR 100 UNIT/ML SUBCUT SCH ×5 (01:35→23:53)
[2022-03-14] MEDS ORDERED: LINACLOTIDE 145 MCG CAPSULE PO SCH (07:30)
[2022-03-14] MEDS: METOCLOPRAMIDE 10 MG TABLET PO SCH ×4 (08:44→22:34)
[2022-03-14] MEDS: PANTOPRAZOLE 40 MG VIAL IV SCH ×2 (08:44→22:36)
[2022-03-14] MEDS: POTASSIUM CHLORIDE 20 MEQ TABLET PO SCH (08:44)
[2022-03-14] MEDS: MAGNESIUM CHLORIDE 64 MG TABLET PO SCH ×2 (08:45→22:45)
[2022-03-14] MEDS: ASPIRIN EC 81 MG TABLET PO SCH (08:46)
[2022-03-14] MEDS: lisinopriL 20 MG TABLET PO SCH (08:46)
[2022-03-14] MEDS: ACETAMINOPHEN 325 MG TABLET PO PRN ×2 (08:46→15:13)
[2022-03-14] MEDS: MORPHINE ER 15 MG TABLET PO SCH ×2 (08:47→22:32)
[2022-03-14] MEDS: METOPROLOL SUCCINATE XL 25 MG TABLET PO SCH (08:47)
[2022-03-14] MEDS: LINACLOTIDE 145 MCG CAPSULE PO SCH (08:54)
[2022-03-14] MEDS: INSULIN NPH/REG 70/30 100 UNIT/ML SUBCUT SCH ×2 (08:54→16:16)
[2022-03-14] MEDS: EMPAGLIFLOZIN PO SCH (08:55)
[2022-03-14] MEDS: LINAGLIPTIN PO SCH (08:55)
[2022-03-14] MEDS: METFORMIN PO SCH (08:55)
[2022-03-14] MEDS: POLYETHYLENE GLYCOL POWDER 17 GM PACK PO SCH ×4 (08:55→22:38)
[2022-03-14] MEDS ORDERED: LEVOFLOXACIN 500 MG TABLET PO SCH (15:00)
[2022-03-14] MEDS: BENZONATATE 100 MG CAPSULE PO PRN (15:13)
[2022-03-14] MEDS ORDERED: SODIUM CHLORIDE 0.9% 1,000 ML IV ONE (16:38)
[2022-03-14 17:36] LABS: Basophils % 0.2 % (0.0-0.8); Eosinophils # 0.2 10*3/uL (0.0-0.87); Eosinophils % 1.7 % (0.00-10.9); Hematocrit 31.6 VOL% (35.7-47.0); Hemoglobin 10.3 GM/DL (12.0-16.0); Immature Granulocytes % 0.4 %; Immature Granulocytes Absolute 0.04 #; Lymphocytes # 1.8 10*3/uL (1.4-4.0); Lymphocytes % 18.5 % (21.3-54.2); Mean Corpuscular HGB Conc 32.6 GM/DL (32-36); Mean Platelet Volume 10.6 FL (9.6-12.0); Monocytes # 0.6 10*3/uL (0.11-0.8); Monocytes % 6.2 % (1.7-12.7); Platelet Count 174 T/CUMM (130-400); Red Blood Count 3.51 MC/CUMM (3.8-5.5); Red Cell Distribution Width 17.3 % (9.3-17.3); White Blood Count 9.8 T/CUMM (4-12)
[2022-03-14 17:54] LABS: Calcium 8.5 MG/DL (8.5-10.1); Osmolality,Calculated 280.3 MOS/KG (273-304)
[2022-03-14] MEDS ORDERED: KETOROLAC 30 MG/1 ML VIAL IV ONE (18:29)
[2022-03-14 19:02] LABS: Bacteria,Urine Occasional /HPF (Few); Mucus,Urine Occasional /LPF (Occasional); RBC,Urine <1 /HPF (0-4); Squamous Epithelial Cell,Urine Occasional /HPF (0-10)
[2022-03-14 19:03] LABS: Bilirubin,Urine Negative (Negative); Blood, Urine Trace mg/dL (Negative); Glucose,Urine (UA) Negative (Negative); Ketones,Urine Negative (Negative); Nitrite,Urine Negative (Negative); Protein,Urine Negative (Negative); Urine Appearance Clear (Clear); Urine Color Yellow (Yellow); Urine Specific Gravity < 1.005 (1.001-1.035); Urine Urobilinogen 0.2 eU/dL (<2.0); Urine pH 6.5 (4.5-8.0)
[2022-03-14] MEDS ORDERED: KETOROLAC 15 MG/1 ML VIAL IV PRN (20:02)
[2022-03-14] MEDS: SIMVASTATIN 10 MG TABLET PO SCH (22:35)
[2022-03-14] MEDS: AMITRIPTYLINE 25 MG TABLET PO SCH (22:35)
[2022-03-15] MEDS: METOCLOPRAMIDE 10 MG/2 ML VIAL IV SCH ×4 (02:13→17:17)
[2022-03-15] MEDS: HYDROmorphone 1 MG/1 ML SYRINGE IV PRN (04:48)
[2022-03-15] MEDS: BENZONATATE 100 MG CAPSULE PO PRN (04:50)
[2022-03-15 07:12] LABS: Basophils % 0.1 % (0.0-0.8); Eosinophils # 0.2 10*3/uL (0.0-0.87); Eosinophils % 1.9 % (0.00-10.9); Hematocrit 32.4 VOL% (35.7-47.0); Hemoglobin 10.5 GM/DL (12.0-16.0); Immature Granulocytes % 0.4 %; Immature Granulocytes Absolute 0.03 #; Lymphocytes # 1.6 10*3/uL (1.4-4.0); Lymphocytes % 21.1 % (21.3-54.2); Mean Corpuscular HGB Conc 32.4 GM/DL (32-36); Mean Corpuscular Volume 89.5 FL (87-102); Mean Platelet Volume 10.9 FL (9.6-12.0); Monocytes # 0.7 10*3/uL (0.11-0.8); Monocytes % 9.1 % (1.7-12.7); Neutrophils % 67.4 % (38.7-73.9); Platelet Count 185 T/CUMM (130-400); Red Blood Count 3.62 MC/CUMM (3.8-5.5); Red Cell Distribution Width 17.2 % (9.3-17.3); White Blood Count 7.8 T/CUMM (4-12)
[2022-03-15 07:37] LABS: Osmolality,Calculated 279.4 MOS/KG (273-304); Potassium 3.6 MMOL/L (3.5-5.1)
[2022-03-15] MEDS ORDERED: LEVOFLOXACIN INJ 750 MG/150 ML PREMIX IV SCH (09:00)
[2022-03-15] MEDS: ASPIRIN EC 81 MG TABLET PO SCH (09:12)
[2022-03-15] MEDS: METOPROLOL SUCCINATE XL 25 MG TABLET PO SCH (09:12)
[2022-03-15] MEDS: POTASSIUM CHLORIDE 20 MEQ TABLET PO SCH (09:12)
[2022-03-15] MEDS: lisinopriL 20 MG TABLET PO SCH (09:12)
[2022-03-15] MEDS: MAGNESIUM CHLORIDE 64 MG TABLET PO SCH ×2 (09:13→21:48)
[2022-03-15] MEDS: MORPHINE ER 15 MG TABLET PO SCH ×2 (09:13→21:47)
[2022-03-15] MEDS: POLYETHYLENE GLYCOL POWDER 17 GM PACK PO SCH ×4 (09:14→22:19)
[2022-03-15] MEDS: PANTOPRAZOLE 40 MG VIAL IV SCH ×2 (09:14→21:48)
[2022-03-15] MEDS: INSULIN NPH/REG 70/30 100 UNIT/ML SUBCUT SCH ×3 (09:15→18:10)
[2022-03-15] MEDS: INSULIN REGULAR 100 UNIT/ML SUBCUT SCH ×3 (09:15→17:16)
[2022-03-15] MEDS: METOCLOPRAMIDE 10 MG TABLET PO SCH ×4 (09:22→21:46)
[2022-03-15] MEDS: LINACLOTIDE 145 MCG CAPSULE PO SCH (09:22)
[2022-03-15] MEDS: LINAGLIPTIN PO SCH (09:23)
[2022-03-15] MEDS: METFORMIN PO SCH (09:23)
[2022-03-15] MEDS: EMPAGLIFLOZIN PO SCH (09:23)
[2022-03-15] MEDS: SIMVASTATIN 10 MG TABLET PO SCH (21:47)
[2022-03-15] MEDS: AMITRIPTYLINE 25 MG TABLET PO SCH (21:48)
[2022-03-16] MEDS: BENZONATATE 100 MG CAPSULE PO PRN (00:31)
[2022-03-16] MEDS: INSULIN REGULAR 100 UNIT/ML SUBCUT SCH ×2 (02:38→06:50)
[2022-03-16] MEDS: METOCLOPRAMIDE 10 MG/2 ML VIAL IV SCH ×2 (02:40→06:26)
[2022-03-16 05:20] LABS: Basophils % 0.5 % (0.0-0.8); Eosinophils # 0.2 10*3/uL (0.0-0.87); Eosinophils % 2.6 % (0.00-10.9); Hematocrit 31.7 VOL% (35.7-47.0); Hemoglobin 10.2 GM/DL (12.0-16.0); Immature Granulocytes % 0.3 %; Immature Granulocytes Absolute 0.02 #; Lymphocytes # 2.7 10*3/uL (1.4-4.0); Lymphocytes % 45.7 % (21.3-54.2); Mean Corpuscular HGB Conc 32.2 GM/DL (32-36); Mean Corpuscular Volume 89.8 FL (87-102); Mean Platelet Volume 10.5 FL (9.6-12.0); Monocytes # 0.7 10*3/uL (0.11-0.8); Monocytes % 12.5 % (1.7-12.7); Neutrophils % 38.4 % (38.7-73.9); Platelet Count 172 T/CUMM (130-400); Red Blood Count 3.53 MC/CUMM (3.8-5.5); Red Cell Distribution Width 16.8 % (9.3-17.3); White Blood Count 5.8 T/CUMM (4-12)
[2022-03-16 05:41] LABS: Calcium 8.7 MG/DL (8.5-10.1); Osmolality,Calculated 283.8 MOS/KG (273-304); Potassium 3.9 MMOL/L (3.5-5.1)
[2022-03-16 06:16] LABS: Eosinophils 6 % (0-10); Hypochromia Slight; Lymphocytes 46 % (20-55); Microcytosis Slight; Platelet Estimate Adequate; Total Cells Counted 100
[2022-03-16] MEDS: LINACLOTIDE 145 MCG CAPSULE PO SCH (07:32)
[2022-03-16] MEDS: METOCLOPRAMIDE 10 MG TABLET PO SCH (07:32)
[2022-03-16 08:10] VITALS: BP 170/81
[2022-03-16] MEDS: ASPIRIN EC 81 MG TABLET PO SCH (08:53)
[2022-03-16] MEDS: POTASSIUM CHLORIDE 20 MEQ TABLET PO SCH (08:53)
[2022-03-16] MEDS: lisinopriL 20 MG TABLET PO SCH (08:54)
[2022-03-16] MEDS: MAGNESIUM CHLORIDE 64 MG TABLET PO SCH (08:54)
[2022-03-16] MEDS: POLYETHYLENE GLYCOL POWDER 17 GM PACK PO SCH ×2 (08:55→09:06)
[2022-03-16] MEDS: MORPHINE ER 15 MG TABLET PO SCH (08:55)
[2022-03-16] MEDS: METOPROLOL SUCCINATE XL 25 MG TABLET PO SCH (08:55)
[2022-03-16] MEDS: INSULIN NPH/REG 70/30 100 UNIT/ML SUBCUT SCH (08:57)
[2022-03-16] MEDS ORDERED: LEVOFLOXACIN 750 MG TABLET PO SCH (09:00)
[2022-03-16] MEDS: LINAGLIPTIN PO SCH (09:06)
[2022-03-16] MEDS: METFORMIN PO SCH (09:06)
[2022-03-16] MEDS: EMPAGLIFLOZIN PO SCH (09:06)
[2022-03-16] MEDS: PANTOPRAZOLE 40 MG VIAL IV SCH (09:07)
== END 2022-03-16 12:33 | disposition home or self-care (01) | DRG 73 ==
LOC: EDBD → EDUNIT# → N.ED 17:55 → N.EDINP 17:55 → N.2W 03-13 10:57 → N.SDSINP 03-13 10:57 → N.2W 03-13 11:35 → UNDODISOB 03-16 12:33
PROVIDERS: ADMIT Surgery; ATTEND Surgery